=== PATIENT | female | born 1945 | race Caucasian/White ===

== ENCOUNTER → 2018-05-23 09:17 | Outpatient (CLI) | payer MEDICARE, BC, SELFPAY ==
[2018-05-23 09:26] VITALS: BP 149/69; PULSE 71; RESP 16; TEMP 36.5; O2SAT 97; BMI 28.0
[2018-05-23] MEDS: DENOSUMAB 60 MG/ML ML SQ (09:40)
== END ==
PROVIDERS: Family Provider Internal Medicine; PCP Internal Medicine; Visit Provider Internal Medicine
DX: M81.0 Age-related osteoporosis without current pathological fracture (principal)
CPT/HCPCS: 96372; J0897

== ENCOUNTER → 2018-10-30 08:28 | Outpatient (CLI) | payer MEDICARE, BC, SELFPAY ==
--- NOTE | 2018-10-30 08:35 | BI_ITS ---
MAMMOGRAPHY - BILATERAL SCREENING REASON FOR EXAM: Female, 73 years old. Routine annual screening examination. PERTINENT HISTORY: Mother with breast cancer. TECHNIQUE: Digital bilateral breast sarai (3D mammographic acquisition) in the CC and MLO projections. 2-D mediolateral oblique (MLO) and craniocaudad (CC) views of both breasts were obtained. CAD: Full Field Digital Mammography with Computer Added Detection was performed. COMPARISON: Comparison is made with prior study dated October 02, 2017 and August 28, 2016. FINDINGS: Breast Composition: The breasts are heterogeneously dense, which may obscure small masses. There are no dominant masses or suspicious calcifications. Stable small bilateral axillary lymph nodes. No other significant abnormalities are identified. There has been no significant change since the prior study. BI/SCREENING MAMM (CAD), BILAT IMPRESSION: Stable bilateral screening mammogram. Yearly follow-up mammogram recommended. (A) ASSESSMENT CATEGORY: BIRADS Category 2: Benign. A letter regarding these results will be sent to the patient by the facility within 30 days. Approximately 10% of breast cancers are not detected by mammography. A normal mammogram should not delay biopsy of a clinically suspicious abnormality. [id number] Electronically Signed: Jaun Montero MD at 10:32 EST Tel [phone], Service support ,
--- NOTE | 2018-10-30 08:42 | BD_ITS ---
STUDY: DUAL ENERGY X-RAY ABSORPTIOMETRY / DXA REASON FOR EXAM: Female, 73 years old. The patient is postmenopausal. Loss of height. TECHNIQUE: Bone Mineral Density (BMD) measurements of lumbar spine and bilateral hips were obtained. COMPARISON: Comparison is made with prior study dated October 16, 2016. FINDINGS: Lumbar Spine (L1-L4): g/cm2 (1.357) / T-score (1.5) / Z-score (3.2) Findings are suggestive of normal bone density with a low fracture risk. Left Femur Total: g/cm2 (0.790) / T-score (-1.7) / Z-score (0.0) Left Femoral Neck: g/cm2 (0.770) / T-score (-1.9) / Z-score (0.0) Right Femur Total: g/cm2 (0.823) / T-score (-1.5) / Z-score (0.3) Right Femoral Neck: g/cm2 (0.803) / T-score (-1.7) / Z-score (0.2) The T-Scores on the most recent prior examination were: Lumbar Spine (L1-L4): There has been improvement of bone density since the previous examination. Left Femur Total: which represents an improvement of 2.1%. Right Femur Total: which represents a worsening of 0.6%. BD/Dexa Bone Density Study IMPRESSION: The patient is considered osteopenic as outlined below according to World Jean Organization (WHO) criteria with a moderate fracture risk. There has been improvement of bone density since the previous examination. Reference Information: The T-score is the number of standard deviations above or below the standard which is normal for young adults at their peak bone mineral density. The World Health Organization (WHO) interprets the T-scores as follows: Above -1 Normal bone density Between -1 and -2.5 Osteopenia Equal to / or below -2.5 Osteoporosis As a practical clinical guideline, osteopenia may be graded as follows: Mild -1 through -1.5 Moderate -1.6 through -2.0 Severe -2.1 through -2.4 The Z-score is the number of standard deviations above or below age-matched controls. A Z-score of less than -1.5 would be considered abnormal. References: 1. NIH Osteoporosis and Related Bone Diseases http://www.osteo.org 2. International Society for Clinical Densitometry http://www.iscd.org 3. National Osteoporosis Foundation http://www.nof.org Electronically Signed: Jaun Montero MD at 8:47 EST Tel [phone], Service support ,
== END ==
PROVIDERS: Family Provider Internal Medicine; PCP Internal Medicine; Visit Provider Internal Medicine
DX: Z12.31 Encounter for screening mammogram for malignant neoplasm of breast (principal); M81.0 Age-related osteoporosis without current pathological fracture
CPT/HCPCS: 77063; 77067; 77080

== ENCOUNTER → 2018-11-21 09:23 | Outpatient (CLI) | payer MEDICARE, BC, SELFPAY ==
[2018-05-23 09:26] VITALS: BMI 28.0
[2018-11-21 09:44] VITALS: BP 155/91; PULSE 75; RESP 16; TEMP 36.3; O2SAT 97; BMI 28.5
[2018-11-21] MEDS: DENOSUMAB 60 MG/ML ML SQ (09:52)
== END ==
PROVIDERS: Family Provider Internal Medicine; PCP Internal Medicine; Visit Provider Internal Medicine
DX: M81.0 Age-related osteoporosis without current pathological fracture (principal)
CPT/HCPCS: 96372; J0897

== ENCOUNTER → 2019-03-19 14:41 | Outpatient (CLI) | payer SELFPAY ==
[2018-11-21 09:44] VITALS: BMI 28.5
--- NOTE | 2019-03-19 14:47 | CT_ITS ---
STUDY: CT CHEST WITHOUT CONTRAST REASON FOR EXAM: Female, 73 years old. Hyperlipidemia, calcium scoring, Over read. RADIATION DOSAGE (If Supplied By Facility): CTDIvol = ( 12.19 ) mGy, DLP = ( 170.66 ) mGycm TECHNIQUE: Transaxial imaging was performed without the administration of intravenous contrast material. Individualized dose optimization techniques were used for this CT. COMPARISON: CT chest 12/28/2015, CT abdomen and pelvis 12/31/2015. FINDINGS: Benign hepatic cysts, stable pattern, unchanged from prior imaging of 2016. Body wall soft tissues normal. Mild thoracic spondylosis. Minimal sliding hiatal hernia. Normal esophagus. No mediastinal mass or lymphadenopathy. Evaluated portions of the lungs exhibit no acute process. Visualized airways are normal. Nonaneurysmal ectasia of the ascending aorta and proximal arch 3.5 cm. on prior imaging of 2015 the greatest dimension in the same location was 3.2 cm. Nondilated central pulmonary arteries. Mild cardiomegaly, no pericardial effusion. The right and left coronary arteries each emerge from the proper coronary sinus with right coronary dominance to the PDA. Extensive three-vessel coronary calcifications. Mild mitral valve annulus calcifications and mild aortic valve annulus calcifications. CT/Limited Chest CT w/CCTA IMPRESSION: Chronic findings as above. No acute thoracic abnormality is evident. Prominent three-vessel coronary calcifications. The coronary calcium score is reported under separate cover with cardiology. Please see that report. Electronically Signed: Osmani Morgan MD at 10:01 EDT Tel , Service support ,
--- NOTE | 2019-03-19 14:47 | CT_ITS ---
STUDY: CT CHEST WITHOUT CONTRAST REASON FOR EXAM: Female, 73 years old. Hyperlipidemia, calcium scoring, Over read. RADIATION DOSAGE (If Supplied By Facility): CTDIvol = ( 12.19 ) mGy, DLP = ( 170.66 ) mGycm TECHNIQUE: Transaxial imaging was performed without the administration of intravenous contrast material. Individualized dose optimization techniques were used for this CT. COMPARISON: CT chest 12/28/2015, CT abdomen and pelvis 12/31/2015. FINDINGS: Benign hepatic cysts, stable pattern, unchanged from prior imaging of 2016. Body wall soft tissues normal. Mild thoracic spondylosis. Minimal sliding hiatal hernia. Normal esophagus. No mediastinal mass or lymphadenopathy. Evaluated portions of the lungs exhibit no acute process. Visualized airways are normal. Nonaneurysmal ectasia of the ascending aorta and proximal arch 3.5 cm. on prior imaging of 2015 the greatest dimension in the same location was 3.2 cm. Nondilated central pulmonary arteries. Mild cardiomegaly, no pericardial effusion. The right and left coronary arteries each emerge from the proper coronary sinus with right coronary dominance to the PDA. Extensive three-vessel coronary calcifications. Mild mitral valve annulus calcifications and mild aortic valve annulus calcifications. CT/CCTA Calcium Scoring IMPRESSION: Chronic findings as above. No acute thoracic abnormality is evident. Prominent three-vessel coronary calcifications. The coronary calcium score is reported under separate cover with cardiology. Please see that report. Electronically Signed: Osmani Morgan MD at 10:01 EDT Tel , Service support ,
[2019-03-19 14:53] VITALS: BP 148/82; PULSE 60; RESP 14; O2SAT 100; BMI 28.7
--- NOTE | 2019-03-19 20:52 | CA.SCORE ---
Calcium Scoring Date of Study:: 03/19/19 Coronary Calcium Scoring: High-resolution Computed Tomographic imaging of the chest was performed on 03-19-19, with particular attention paid to the coronary arteries. Images from the examination were analyzed for the presence and extent of coronary artery calcification , using coronary calcium quantification software. The patient tolerated the procedure well and there were no complications. The results of the coronary calcification analysis are provided below. - Findings Left Main (LM): 629 Left Anterior Descending (LAD): 0 Left Circumflex (LCX): 146 Right Coronary Artery (RCA): 1,117 Total Agatston Score: 1,892 Percentile Rankin - Conclusion Calcium Scoring Interpretation: Calcium Score Interpretation 0 No identifiable atherosclerotic plaque. Very low cardiovascular disease risk. <5% chance of presence coronary artery disease A Negative Examination 1-10 Minimal Plaque burden. Significant coronary artery disease very unlikely. 11-100 Mild plaque burden. Likely mild or minimal coronary atherosclerosis. 101-400 Moderate plaque burden Moderate non-obstructive coronary artery disease highly likely. Over 400 Extensive plaque burden. High likelihood of at least one significant coronary stenosis (>50% diameter) Calcium Score: >400 High likelihood of at least one significant coronary stenosis - Continue cardiovascular risk factor evaluation and therapy as deemed appropriate.
== END ==
PROVIDERS: Family Provider Internal Medicine; PCP Internal Medicine; Referring Provider Internal Medicine; Visit Provider Internal Medicine
DX: E78.5 Hyperlipidemia, unspecified (principal)
CPT/HCPCS: 75571; 76380

== ENCOUNTER → 2019-04-30 15:36 | Outpatient (CLI) | payer MEDICARE, BC, SELFPAY ==
[2019-04-30 14:24] VITALS: BMI 29.4
[2019-04-30 16:45] LABS: Absolute Lymphocyte Count 2.27 X10^3/ul (0.83-4.51); Absolute Neutrophil Count 4.5 X10^3/uL (2.0-7.7); Basophil# 0.04 X10^3/uL; Basophil% 0.5 % (0-1); Eosinophil# 0.09 X10^3/uL; Eosinophils% 1.2 % (0-5); Lymphocyte # 2.27 X10^3/ul (4.0); Lymphocyte % 30.7 % (19-41); Mean Corp Hgb Conc 33.3 g/gl (32-36); Mean Corpuscular Volume 92.9 fL (81-99); Monocyte# 0.52 X10^3/uL; Neutrophil # 4.46 X10^3/uL (2.7-7.7); Neutrophil % 60.5 % (47-70); Platelet Count 194 K/mm3 (150-450); RBC Distribution Width CV 12.9 % (11.6-14.6); White Blood Count 7.4 K/mm3 (4.4-11.0)
[2019-04-30 16:55] LABS: POSITIVE COUNT NO; POSITIVE DIFFERENTIAL NO; POSITIVE MORPHOLOGY NO
[2019-04-30 17:07] LABS: Anion Gap 5 (5-15); BUN 13 mg/dL (7-18); BUN/Creat Ratio 22.8 RATIO (10-20); Calcium,Total 9.4 mg/dL (8.5-10.1); Chloride 109 mmol/L (98-107); Creatinine, Serum 0.57 mg/dL (0.55-1.02); EST Glomerular Filtration Rate 109 mL/min (>60); Est Glom Filt Rate - Afr Amer 132 mL/min (>60); Glucose 100 mg/dL (74-106); Potassium 4.7 mmol/L (3.5-5.1); Sodium Level 142 mmol/L (136-145); Thyroid Stim Hormone (TSH) 1.87 uIU/mL (0.358-3.74)
== END ==
PROVIDERS: Family Provider Internal Medicine; PCP Internal Medicine; Referring Provider Internal Medicine Cardiovascular Disease; Visit Provider Internal Medicine Cardiovascular Disease
DX: R53.83 Other fatigue (principal); R93.1 Abnormal findings on diagnostic imaging of heart and coronary circulation; I49.3 Ventricular premature depolarization; E78.00 Pure hypercholesterolemia, unspecified; I10 Essential (primary) hypertension
CPT/HCPCS: 36415; 80048; 84436; 84443; 85025

== ENCOUNTER → 2019-05-19 06:07 | Outpatient (CLI) | payer MEDICARE, BC, SELFPAY ==
[2019-04-30 14:24] VITALS: BMI 29.4
--- NOTE | 2019-05-19 06:08 | ECHOD_ITS ---
Reason For Study: DYSPNEA/SOB Procedure This was a 2D Doppler, Color Flow transthoracic echocardiogram. The exam was of adequate technical quality. Exam performed in department. Left Ventricle Normal LV size. Segmental dysfunction with preserved ejection fraction (see wall motion). The estimated ejection fraction is 55 %. There is evidence of diastolic dysfunction. No regional wall motion abnormalities noted. Right Ventricle Normal RV size. Normal systolic function. Atria The left atrium is mildly enlarged. Normal right atrium. No doppler evidence for ASD. Mitral Valve There is mild mitral annular calcification. Extension of the mitral annular calcification onto the posterior mitral valve leaflet. Mild (1+) mitral valve insufficiency. Tricuspid Valve Normal tricuspid valve. Moderate (2+) tricuspid valve insufficiency. Right ventricular systolic pressure estimated to be 44 mmHg. Aortic Valve Trisinus/trileaflet aortic valve. Normal aortic valve. Pulmonic Valve The pulmonic valve is not well visualized. Trivial pulmonic valve insufficiency. Great Vessels Normal sized aortic root. Pericardium/Pleural No pericardial effusion. MMode/2D Measurements & Calculations LVIDd: 4.4 cm IVSd: 0.71 cm Ao root diam: 3.1 cm LVIDs: 3.2 cm LVPWd: 0.97 cm RVDd: 3.4 cm FS: 27.0 % LAV(MOD-bp): 61.5 ml LVAd ap4: 25.9 cm2 SV(MOD-sp4): 41.4 ml LAV(MOD-bp) Indexed: 35.4 ml/m2 EDV(MOD-sp4): 79.5 ml LAV(MOD-sp2): 62.2 ml EDV(sp4-el): 82.3 ml LAV(MOD-sp4): 55.9 ml LVAs ap4: 17.1 cm2 ESV(MOD-sp4): 38.1 ml ESV(sp4-el): 38.9 ml EF(MOD-sp4): 52.1 % EF(sp4-el): 52.7 % SV(sp4-el): 43.4 ml LA A4 area: 19.3 cm2 LA dimension(2D): 3.9 cm RA A4 area: 14.0 cm2 Time Measurements MV dec time: 0.38 sec Doppler Measurements & Calculations MV E max panda: 65.3 cm/sec Lat Peak E' Panda: 5.4 cm/sec Med Peak E' Panda: 4.4 cm/sec MV A max panda: 109.6 cm/sec E/E' lat: 12.1 E/E' med: 14.8 MV E/A: 0.60 Ao V2 max: 124.6 cm/sec LV V1 max: 81.6 cm/sec PA V2 max: 83.2 cm/sec Ao max P.2 mmHg LV V1 max P.7 mmHg TR max panda: 321.6 cm/sec TR max P.4 mmHg Interpretation Summary Segmental dysfunction with preserved ejection fraction (see wall motion). The estimated ejection fraction is 55 %. The left atrium is mildly enlarged. There is mild mitral annular calcification. Extension of the mitral annular calcification onto the posterior mitral valve leaflet. Mild (1+) mitral valve insufficiency. Moderate (2+) tricuspid valve insufficiency. Trivial pulmonic valve insufficiency. Right ventricular systolic pressure estimated to be 44 mmHg. There is evidence of diastolic dysfunction. Ordering Physician: Aguila Mustafa Referring Physician: GISELE BOWMAN Performed By: Vicky Perez RDCS
--- NOTE | 2019-05-19 10:55 | STRESSREP_ITS ---
Stress Test Report Date: 05-19-19 Procedure: Exercise tolerance test/imaging study Indications: Shortness of breath/dyspnea on exertion; coronary artery calcif ication Consent: Per the patient Procedure: The patient exercised on a Jacoby protocol for 4 minutes completing Stage I and 1 minute of Stage II achieving a peak heart rate of 157 bpm (109 % predicted maximal heart rate) with a peak blood pressure 162/82 mmHg and a peak MET capacity of 5 METs. The baseline ECG demonstrated normal sinus rhythm. The peak exercise ECG demonstrated [id number] nonspecific ST segment variability/downsloping ST segment depression in leads II, III, aVF, and V5 through V6 with gradual resolution towards baseline in recovery. There were occasional PACs and repetitive PACs during exercise and recovery; intermittent episodes compatible with a PSVT during recovery; occasional PVCs during exercise and recovery. The functional capacity was considered average. There was no complaint of chest discomfort during exercise or recovery. The examination was discontinued secondary to dyspnea. Impression: 1. Technically adequate (percent predicted maximal heart rate greater than 85%) exercise tolerance test 2. Peak exercise ECG demonstrated [id number] nonspecific ST segment variability/downsloping ST segment depression in leads II, III, aVF, and V5 through V6 with gradual resolution towards baseline in recovery 3. There were occasional PACs and repetitive PACs during exercise and recovery; intermittent episodes compatible with a PSVT during recovery; occasional PVCs during exercise and recovery 4. Nuclear images pending Myocardial perfusion imaging study: Technique: The patient was injected with 10.9 mCi of technetium 99m Cardiolite and subse quently rest SPECT Cardiolite nuclear imaging was obtained in the horizontal long, vertical long, and short axis views. he patient exercised on a Jacoby protocol for 4 minutes completing Stage I and 1 minute of Stage II achieving a peak heart rate of 157 bpm (109 % predicted maximal heart rate) with a peak blood pressure 162/82 mmHg and a peak MET capacity of 5 METs. The patient was injected with 33.1 mCi of technetium 99m Cardiolite and subsequently stress SPECT Cardiolite nuclear imaging was obtained in the horizontal long, vertical long, and short axis views. A gated Cardiolite study at peak stress was obtained. Interpretation: Rest and stress SPECT Cardiolite nuclear imaging status post realignment, normalization, and attenuation correction, demonstrates at rest relative uniform tracer uptake. Status post stress there is notation of diminished tracer uptake in the apical segments as well as the mid to distal inferior segments. There is end systolic thickening and brightening. The gated Cardiolite study demonstrates myocardial thickening and inward wall motion. The reported LVEF is 62 %. Impression: 1. Rest and stress SPECT Cardiolite nuclear imaging demonstrate demonstrate myocardial perfusion changes concerning for areas of stress-induced myocardial ischemia involving portions of the apical segments as well as the mid to distal inferior segments. 2. The gated Cardiolite study reports an LVEF of 62 %. This note was generated with [employer] software. It may contain incorrect words, spelling, and punctuation that were not noted in checking the note before signing.
== END ==
PROVIDERS: Family Provider Internal Medicine; PCP Internal Medicine; Referring Provider Internal Medicine Cardiovascular Disease; Visit Provider Internal Medicine Cardiovascular Disease
DX: R06.02 Shortness of breath (principal); I49.3 Ventricular premature depolarization; I10 Essential (primary) hypertension; E78.00 Pure hypercholesterolemia, unspecified; R53.83 Other fatigue; R93.1 Abnormal findings on diagnostic imaging of heart and coronary circulation
CPT/HCPCS: 78452; 93017; 93306; A9500; A4216

== ENCOUNTER → 2019-05-22 10:20 | Outpatient (CLI) | payer MEDICARE, BC, SELFPAY ==
[2018-11-21 09:44] VITALS: BMI 28.5
[2019-04-30 14:24] VITALS: BMI 29.4
[2019-05-22 10:35] VITALS: BP 174/70; PULSE 62; RESP 16; TEMP 36.6; O2SAT 98; BMI 29.2
[2019-05-22] MEDS: DENOSUMAB 60 MG/ML ML SQ (10:37)
== END ==
PROVIDERS: Family Provider Internal Medicine; PCP Internal Medicine; Referring Provider Internal Medicine; Visit Provider Internal Medicine
DX: M81.0 Age-related osteoporosis without current pathological fracture (principal)
CPT/HCPCS: 96372; J0897

== ENCOUNTER → 2019-05-25 14:42 | Outpatient (CLI) | payer MEDICARE, BC, SELFPAY ==
[2019-05-25 14:02] VITALS: BMI 29.2
[2019-05-25 17:02] LABS: Hematocrit 38.4 % (37-47); Hemoglobin 12.9 g/dl (12.0-15.0); Mean Corp Hgb Conc 33.6 g/gl (32-36); Mean Corpuscular Hgb 31.3 pg (27.0-32.0); Mean Corpuscular Volume 93.2 fL (81-99); Mean Platelet Vol. 10.1 fl (6.2-12.0); Platelet Count 203 K/mm3 (150-450); RBC Distribution Width CV 13.1 % (11.6-14.6); RBC Distribution Width SD 44.6 fl (35.1-43.9); Red Blood Count 4.12 M/mm3 (4.2-5.4); Scan Indicated on CBC? Y/N NO; White Blood Count 5.6 K/mm3 (4.4-11.0)
[2019-05-25 17:21] LABS: Prothrombin Time (Protime)PT. 13.3 SECONDS (11.7-14.9)
[2019-05-25 17:22] LABS: Partial Thromboplast Time 24.2 Seconds (24.1-36.2)
[2019-05-25 17:25] LABS: Anion Gap 10 (5-15); BUN 13 mg/dL (7-18); BUN/Creat Ratio 20.8 RATIO (10-20); Calcium,Total 9.4 mg/dL (8.5-10.1); Chloride 108 mmol/L (98-107); Creatinine, Serum 0.62 mg/dL (0.55-1.02); EST Glomerular Filtration Rate 99 mL/min (>60); Est Glom Filt Rate - Afr Amer 119 mL/min (>60); Glucose 90 mg/dL (74-106); Potassium 3.9 mmol/L (3.5-5.1); Sodium Level 144 mmol/L (136-145)
== END ==
PROVIDERS: Family Provider Internal Medicine; PCP Internal Medicine; Referring Provider Internal Medicine Cardiovascular Disease; Visit Provider Internal Medicine Cardiovascular Disease
DX: I10 Essential (primary) hypertension (principal); R53.83 Other fatigue; R94.39 Abnormal result of other cardiovascular function study; R93.1 Abnormal findings on diagnostic imaging of heart and coronary circulation
CPT/HCPCS: 36415; 80048; 85027; 85610; 85730

== ENCOUNTER 2019-06-02 07:51 | Day surgery (SDC) | payer MEDICARE, BC, SELFPAY ==
[2019-05-22 10:35] VITALS: BMI 29.2
--- NOTE | 2019-05-25 02:39 | HP_ITS ---
HPI HPI History of Present Illness Surgical H&P: Yes Details: This is a 74-year-old white female who [facility] upon concerns of an abnormal coronary calcium score. She states the best of her knowledge she has no definitive cardiovascular disease. Approximately 3 years ago when she was undergoing evaluation care for her CLL and concerns of pancytopenia she had chest discomfort. She was evaluated with an exercise tolerance test/imaging study. She exercised on a Jacoby protocol for 4 minutes and 30 seconds obtaining 102% predicted maximal heart rate. She had ECG changes which were considered not diagnostic for myocardial ischemia. Her myocardial perfusion images were considered negative for evidence of stress-induced myocardial ischemia. Approximately 2 years ago she underwent evaluation with a Holter monitor. According to reports she was found to have sinus rhythm with both PACs and PVCs. She had no wide-complex runs. She states she is been doing well otherwise from a cardiac standpoint. She denies any classic symptoms of angina pectoris. There is been no overt episodes of CHF or pulmonary edema. She has had no near syncope or syncope. She states she is up and ambulating during the day. She may feel somewhat more tired and fatigued over time but states that she knows she is getting older, has her diagnosis of CLL, and does not necessarily believe that she has had any other explanation for this. She states this has not been a dramatic change for her. In the office at her initial visit she had an ECG. She was in sinus bradycardia at a rate of 56 bpm. She had no acute ECG changes. She did have a coronary calcium score recently. Per the report her coronary calcium score was listed at 1893. This does place her in a higher risk category for the possibility of plaque burden. She has subsequently undergone further evaluation with an exercise tolerance test/imaging study. The results are as noted below. Intake Vital Signs 05/25/19 Body Mass Index (BMI) 29.2 05/25/19 Height 5 ft 2 in 05/25/19 Weight: 160 lb 05/25/19 Body Mass Index (BMI) 29.2 05/25/19 Blood Pressure 176/90 H 05/25/19 Blood Pressure Location Lt brachial 05/25/19 Blood Pressure Position Sitting 05/25/19 Respiratory Rate 16 05/25/19 Pulse Rate 72 05/25/19 Pulse Source Auscultation Intake Visit Reasons: Update H & P Operating Room Tech Required: No Accompanied by: Friend Allergies codeine Allergy (Verified 05/25/19 13:54) Rash meperidine HCl [From Demerol] Allergy (Verified 05/25/19 13:54) Rash morphine Allergy (Verified 05/25/19 13:54) Rash Penicillins Allergy (Verified 05/25/19 13:54) Rash Medications Aspirin [Aspirin, Baby] 81 mg PO DAILY@0800 05/23/18 [History Confirmed 05/25/19] carvedilol 25 mg tablet 25 mg PO BID 04/28/19 [History Confirmed 05/25/19] cholecalciferol (vitamin D3) 1,000 unit tablet 1,000 unit PO DAILY 04/28/19 [History Confirmed 05/25/19] cholestyramine (with sugar) 4 gram oral powder 4 g PO BID g 04/28/19 [History Confirmed 05/25/19] losartan 100 mg tablet 100 mg PO DAILY 04/28/19 [History Confirmed 05/25/19] ranitidine 150 mg tablet 150 mg PO BID 04/28/19 [History Confirmed 05/25/19] calcium carb,cit ER 600 mg calcium-vit D3 500 unit tablet,ext.release 2 tab PO DAILY tab 04/30/19 [History Confirmed 05/25/19] denosumab 60 mg/mL subcutaneous syringe 60 mg SC [id number] ml 04/30/19 [History Confirmed 05/25/19] amlodipine 2.5 mg tablet 2.5 mg PO DAILY #30 tab 05/25/19 [Rx Confirmed 05/25/19] clopidogrel 75 mg tablet 75 mg PO DAILY #30 tab 05/25/19 [Rx Confirmed 05/25/19] [facility] Medical History Abnormal cardiac CT angiography (Acute) Essential tremor (Chronic) Premature ventricular contraction (Chronic) GERD (gastroesophageal reflux disease) (Chronic) Pure hypercholesterolemia (Chronic) Essential hypertension (Chronic) CLL (chronic lymphocytic leukemia) (Chronic) Surgical History Cataract extraction status, left eye (Resolved) History of foot surgery (Resolved) History of tonsillectomy (Resolved) History of total hysterectomy (Resolved) Family History Mother Heart disease Hypertension Father CAD (coronary artery disease) Myocardial infarction, Onset Age: 46 Brother Heart disease Hypertension Cancer prostate Brother Heart disease Brother Myocardial infarction, Onset Age: 70 Social History (Updated 05/25/19 @ 14:39 by Aguila Mustafa MD) Smoking Status: Never smoker alcohol intake: current details: occasional substance use type: does not use caffeine: Yes Type: coffee Number of servings: 2, tea Number of servings: 2 ROS Const Const: Negative for fatigue, weakness, frequent falls, excessive sweating, weight gain or weight loss Eyes Eyes: Negative for transient loss of vision, blurry vision or change in vision ENT ENT: Negative for dizziness or balance problems Cardio Chest Pain: No Palpitations: Yes (occasional) feels like its: other (flutter) Edema: None Muscle aches with walking: None Resp Respiratory: Positive for SOB with activity (slight); negative for SOB at rest GI GI: Negative vomiting or vomiting blood/hematemesis : Negative for hematuria Musc Musc: Negative for muscle aches/ myalgia, muscle weakness, joint pain or balance problems Skin Skin: Negative non-healing lesions or rash Neuro Neuro: Positive for lightheadedness (occasional continues sitting to standing); negative for dizziness, orthostatic symptoms, frequent falls, weakness or blurry vision Roberto Carlos Hematologic/Lymphatic: Negative for easy bleeding Endo Endo: Negative for fatigue or excessive sweating Psych Psych: Negative for anxiety or depression Allergy Allergy/Immunology: Negative for hives, Negative for rash Cardiology Exam Const Appearance: cooperative, healthy appearing, comfortable, no acute distress, well developed and well groomed Nutritional Appearance: overweight Orientation: alert, awake and oriented x3 Head Head: normal to inspection, normocephalic and atraumatic Ears: hearing grossly normal bilaterally Nose: external nose normal Mouth: oral mucosae normal Eyes Eyelids: eyelids normal Conjunctivae: conjunctivae normal Pupils: PERRL EOM: EOM intact bilaterally Neck Neck: normal visual inspection and full ROM Carotids: normal carotid upstroke Chest Chest inspection: normal inspection of the chest, symmetric chest movement and normal respiratory effort Auscultation: Bilateral: Clear to Auscultation Cardio Palpation: normal PMI Rate: regular rate Rhythm: regular rhythm Heart sounds: S1 normal and S2 normal GI GI: normal to inspection, soft and bowel sounds present Neuro General: alert, awake, oriented x3 and moves all extremities Skin Skin: no rashes or lesions noted Extremities Pulses: Normal: Right Dorsalis Pedis Pulse, Left Dorsalis Pedis Pulse, Right Posterior Tibial Pulse, Left Posterior Tibial Pulse, Right Radial Pulse, Left Radial Pulse Lower Extremity Edema: None: Bilateral Psych Psychological: normal affect Assessment & Plan 1. Abnormal cardiac CT angiography R93.1 Plan She does have an abnormal coronary calcium score as previously described. This is led to further evaluation with an exercise tolerance test. This was deemed to be abnormal. Thus she is being considered for further evaluation with diagnostic cardiac catheterization. The procedure and risks were discussed with her and she was agreeable to this approach. 2. Abnormal stress test R94.39 Plan Again it is unclear whether her fatigue is related to underlying CAD. She did have an abnormal coronary calcium score as previously described. Her subsequent exercise tolerance test has been considered abnormal. Thus she is being recommended for further evaluation with a diagnostic cardiac catheterization. The procedure and risks were discussed with her. She was agreeable to this approach. She did not want to watch the pre-cardiac catheterization videotape. She will be placed on additional medical therapy with clopidogrel/Plavix at 75 mg a day. Hopefully she will tolerate this without any adverse events. 3. Premature ventricular beat I49.3 Plan She is not complaining of any underlying ectopy, dysrhythmias, near syncope or syncope at this time. She will continue evaluation care as noted above. 4. Fatigue, unspecified type R53.83 Plan Again her concern was fatigue. Is unclear whether this is going to turn laster to be related to her concerns of cardiovascular disease versus noncardiac disease. She will continue her cardiac evaluation as previously described. 5. Pure hypercholesterolemia E78.00 Plan She will continue risk factor evaluation care as deemed appropriate. 6. Essential hypertension I10 Plan She will be placed on additional antihypertensive therapy with amlodipine 2.5 mg p.o. daily. She states when she was on HCTZ she became markedly hypotensive and could not tolerate it. 7. CLL (chronic lymphocytic leukemia) C91.90 Pancytopenia, stable. Plan She does have a history of CLL. Her most recent laboratory studies from April of this year demonstrated her CBC it appears stable without any acute changes. 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 Hopefully with the stability of her CBC and with no obvious hemorrhagic or thromboembolic issues she will be able to tolerate her aspirin and her clopidogrel/Plavix therapy. If she does not require PCI then she will not necessarily remain on clopidogrel/Plavix therapy. Plan Detail Other Medications New: clopidogrel 75 mg PO DAILY 30 tabs 3RF amlodipine 2.5 mg PO DAILY 30 tabs 3RF Refilled: clopidogrel 75 mg PO DAILY 30 tabs 3RF Additional Comments Thank you for allowing me to participate in the care of your patient. Please don't hesitate to call if any issues arise. This note was generated using a voice recognition system and there may be incorrect words, spelling or punctuation that were not noted when reviewing the office note prior to saving. Follow Up 3 Months (PFM) Coding Level of Care Code Off vis,est,level [address] angiography R93.1 Abnormal stress test R94.39 Premature ventricular beat I49.3 Fatigue, unspecified type R53.83 ??Fatigue type: unspecified Pure hypercholesterolemia E78.00 Essential hypertension I10 CLL (chronic lymphocytic leukemia) C91.90 Coding Level of Care Code Off vis,est,level [address] angiography R93.1 Abnormal stress test R94.39 Premature ventricular beat I49.3 Fatigue, unspecified type R53.83 ??Fatigue type: unspecified Pure hypercholesterolemia E78.00 Essential hypertension I10 CLL (chronic lymphocytic leukemia) C91.90 Supplemental Info Supplemental Information Stress Test Report Date: 05-19-19 Procedure: Exercise tolerance test/imaging study Indications: Shortness of breath/dyspnea on exertion; coronary artery calcification Consent: Per the patient Procedure: The patient exercised on a Jacoby protocol for 4 minutes completing Stage I and 1 minute of Stage II achieving a peak heart rate of 157 bpm (109 % predicted maximal heart rate) with a peak blood pressure 162/82 mmHg and a peak MET capacity of 5 METs. The baseline ECG demonstrated normal sinus rhythm. The peak exercise ECG demonstrated [id number] nonspecific ST segment variability/downsloping ST segment depression in leads II, III, aVF, and V5 through V6 with gradual resolution towards baseline in recovery. There were occasional PACs and repetitive PACs during exercise and recovery; intermittent episodes compatible with a PSVT during recovery; occasional PVCs during exercise and recovery. The functional capacity was considered average. There was no complaint of chest discomfort during exercise or recovery. The examination was discontinued secondary to dyspnea. Impression: 1. Technically adequate (percent predicted maximal heart rate greater than 85%) exercise tolerance test 2. Peak exercise ECG demonstrated [id number] nonspecific ST segment variability/downsloping ST segment depression in leads II, III, aVF, and V5 through V6 with gradual resolution towards baseline in recovery 3. There were occasional PACs and repetitive PACs during exercise and recovery; intermittent episodes compatible with a PSVT during recovery; occasional PVCs during exercise and recovery 4. Nuclear images pending Myocardial perfusion imaging study: Technique: The patient was injected with 10.9 mCi of technetium 99m Cardiolite and subsequently rest SPECT Cardiolite nuclear imaging was obtained in the horizontal long, vertical long, and short axis views. he patient exercised on a Jacoby protocol for 4 minutes completing Stage I and 1 minute of Stage II achieving a peak heart rate of 157 bpm (109 % predicted maximal heart rate) with a peak blood pressure 162/82 mmHg and a peak MET capacity of 5 METs. The patient was injected with 33.1 mCi of technetium 99m Cardiolite and subsequently stress SPECT Cardiolite nuclear imaging was obtained in the horizontal long, vertical long, and short axis views. A gated Cardiolite study at peak stress was obtained. Interpretation: Rest and stress SPECT Cardiolite nuclear imaging status post realignment, normalization, and attenuation correction, demonstrates at rest relative uniform tracer uptake. Status post stress there is notation of diminished tracer uptake in the apical segments as well as the mid to distal inferior segments. There is end systolic thickening and brightening. The gated Cardiolite study demonstrates myocardial thickening and inward wall motion. The reported LVEF is 62 %. Impression: 1. Rest and stress SPECT Cardiolite nuclear imaging demonstrate demonstrate myocardial perfusion changes concerning for areas of stress-induced myocardial ischemia involving portions of the apical segments as well as the mid to distal inferior segments. 2. The gated Cardiolite study reports an LVEF of 62 %. Diagnostics Electrocardiogram 04/30/19 Echocardiogram 05/19/19 Stress Test Nuclear Medicine 05/19/19 Stress Test 05/19/19 Chest X-Ray 12/26/[address] 03/19/19 05/25/19 9416 <Electronically signed by Aguila koroma MD> Date _ Aguila Mustafa MD I have re-examined the patient. There are no clinical changes since date of exam.
[2019-05-25 14:02] VITALS: BMI 29.2
[2019-06-01 08:55] VITALS: BMI 29.2
--- NOTE | 2019-06-01 09:30 | RAD_ITS ---
STUDY: X-RAY CHEST REASON FOR EXAM: Female, 74 years old. Short of breath. Chest pain. TECHNIQUE: Frontal and lateral views of the chest. COMPARISON: 12/26/2015 FINDINGS: The lungs are clear and expanded. There is no demonstrated pleural abnormality. Normal size heart. Normal mediastinum and doug. Normal visualized pulmonary arteries. There is atherosclerotic calcification of the aortic arch with tortuosity. There are diffuse degenerative changes of the visualized thoracic spine. Normal visualized ribs, clavicles, and shoulders. There is no demonstrated abnormality of the visualized soft tissue structures of the upper abdomen. RAD/Chest PA and Lateral IMPRESSION: No acute chest disease. Electronically Signed: Luigi Mauricio MD at 17:38 EDT , Service support ,
--- NOTE | 2019-06-02 11:32 | CL.D_ITS ---
Patient Name: ISAMAR ORDOÑEZ Study Date: 06/02/2019 Performing: Aguila Mustafa MD Ht: 61.81 inches 157 cm : 1945 Wt: 160.94 lbs 73 kg Age: 74 Gender: female BSA: 1.74 PROCEDURE(S) PERFORMED [id number]/LV CLINICAL PROFILE AND INDICATIONS Indications: Suspected CAD Heart Failure: None Stress/Imaging Stress Test w/SPECT MPI: Yes Result: PositiveStress Test with SPECT MPI: Positive Angina Classification Anginal Classification w/in 2 Weeks: CCS III CAD Presentations: Other: Fatigue / Shortness of Breath CONCLUSIONS Elevated Left Ventricular End Diastolic Pressure Normal LV size, wall motion,and systolic function LVEF: by LV gram 60 % [place] Multivessel CAD Aortic arch: calcified RECOMMENDATIONS Risk factor modification Medical therapy Surgery consult for coronary revascularization DESCRIPTION OF PROCEDURE The patient arrived to the procedure lab. The risks and benefits of the procedure as well as a full d escription of our services here and current unavailability of surgical backup were fully explained to the patient and/or their significant other prior to the catheterization. The Timeout was completed, verifying the correct patient and procedure. The patient's procedural site was prepped and draped in the usual fashion. Local anesthetic was given subcutaneously to right radial region with Lidocaine 2% . Using a modified Seldinger technique, arterial access was obtained via the right radial artery, a 6 Fr sheath was inserted. Right Coronary Artery selective angiography was then performed in multiple v iews using a 5 Fr. 4.0 [place] catheter. Left Coronary Artery selective angiography was performed in mu ltiple views using a 5 Fr. 4.0 [place] catheter. Left Ventriculography was performed in SHETH projection using a 5 Fr. [place] catheter. LV to AO pullback pressures were then recorded.The arterial sheath was pulled and a TR Band was applied for hemostasis 12cc air CORONARY ANGIOGRAPHY DOMINANCE: Right Dominant LEFT HEART ASSESSMENT Left Ventricular Ejection Fraction: by LV Gram 60 % Normal LV wall motion Elevated Left Ventricular End Diastolic Pressure LVEDP: 17 mmHg LEFT MAIN: Mild calcification, Proximal: 25 % Stenosis LEFT ANTERIOR DESCENDING ARTERY: PROX LAD: Moderate calcification, Mild luminal irregularities MID LAD: Eccentric: subtotal occlusion DIAGONAL 1: Proximal - Mild luminal irregularities DIAGONAL 2: Proximal - Diffuse: 85 % Stenosis CIRCUMFLEX ARTERY: Mild calcification PROX CIRC: Mild luminal irregularities MID CIRC: Diffuse: 85 % Stenosis OM 1: Mid - Mild luminal irregularities RIGHT CORONARY ARTERY: Moderate calcification MID RCA: Diffuse subtotal occlusions with the distal vessel filling late, Diffuse subtotal occlusions with the distal vessel filling late COLLATERAL FLOW: Collateral flow from Left to Right VALVE FINDINGS: Normal Aortic Valve function Normal Mitral Valve function AORTIC ROOT: Aortic arch: calcified COMPLICATIONS No Complications PROCEDURE MEDICATIONS Versed 1 mg IV Oxygen: 2 L/min via nasal cannula Heparin diluted in 23cc Heparinized saline. Patient given 10cc IA of this solution. 06/02/2019 10:22:3 9 Verapamil 2.5mg, Ntg 100mcgs, 2000 units of Heparin diluted in 23cc Heparinized saline. Patient give n 10cc IA of this solution. 06/02/2019 10:22:39 SUMMARY OF HEMODYNAMIC DATA Time AIR REST ECG 10:09:39 AO 179/73 (114) SA 10:35:25 LV 167/-9, 16 10:44:26 LV 167/-10, 17 10:44:33 LV 170/-6, 21 10:45:20 LV 168/-8, 20 10:45:27 LVp 170/-8, 24 10:45:31 AOp 162/62 (102) 10:45:37 Signed By Aguila Mustafa MD On 06/02/2019 11:31:38 Aguila Mustafa MD
== END 2019-06-02 15:35 | disposition home or self-care (01) ==
LOC: CLSP 07:52
PROVIDERS: Family Provider Internal Medicine; PCP Internal Medicine; Visit Provider Internal Medicine Cardiovascular Disease
DX: I70.0 Atherosclerosis of aorta (principal); I25.10 Atherosclerotic heart disease of native coronary artery without angina pectoris; I11.0 Hypertensive heart disease with heart failure; I50.30 Unspecified diastolic (congestive) heart failure; I49.3 Ventricular premature depolarization; R93.1 Abnormal findings on diagnostic imaging of heart and coronary circulation; R94.39 Abnormal result of other cardiovascular function study; R53.83 Other fatigue; E78.00 Pure hypercholesterolemia, unspecified; C91.10 Chronic lymphocytic leukemia of B-cell type not having achieved remission; D61.818 Other pancytopenia; Z79.82 Long term (current) use of aspirin; Z79.02 Long term (current) use of antithrombotics/antiplatelets; Z79.899 Other long term (current) drug therapy
CPT/HCPCS: 71046; 93458; 99152; 99153; J7040; C1769; C1894; Q9967

== ENCOUNTER → 2019-08-11 11:31 | Outpatient (CLI) | payer MEDICARE, BC, SELFPAY ==
[2019-08-07 06:40] VITALS: BMI 29.4
--- NOTE | 2019-08-11 12:01 | PCM.CR.ITP ---
General Information - General Information Admitting Diagnosis: CABG X3 Special Needs: NONE Oxygen: NONE - Education/Goals Barriers to Learning: None Individual Counseling: Initial Assessment: High Blood Pressure, Hypertension, Family History of Heart Disease (under 65 years) Cardiac Rehabilitation Goals: 1. Maintain the individual as the primary focus of care. 2. To improve the patient's quality of life. 3. Identification of cardiac risk factors and provide cardiac risk factor management. 4. Enhance the psychosocial status of the patient. 5. Reconditioning enough to allow the patient to resume customary activities. 6. Control symptoms of cardiac disease Scale for measuring improvement of personal goals: Enter appropriate number in Comments. 2 = Unchanged. 3 = Slightly Better. 4 = Moderate Improvement. 5 = Met my Goal Personal Goals: Initial Assessment: Improve energy level, Participate in home exercise program, Get back to work, or to resume activities faster, Improve knowledge of cardiac disease, Improve muscle strength and endurance, Improve diet and eating habits (eat healthier), Control risk factors (learn risk factor modification) Exercise - Initial Assessment - Visit Date of Eval: 08/11/19 - Stages of Change Stages of Change:: Action - Physician Prescribed Exercise Modalities: Treadmill, Biodyne, Airdyne, NuStep, SciFit Frequency (days/week): 3x/week for 12 weeks [36 sessions] Duration (Minutes):: 30 Intensity: 60-80% age predicted maximum heart rate reserve Target Heart Rate:: 94-122 - Hypertension Do any of the following apply?: Yes, Medication - LOPRESSOR Resting Blood Pressure:: 158/76 - Intervention Home Exercise/Activity Goal:: Sitting Time <3 hrs/day - Education Goals:: Warm-up, RPE KIMBERLY Scale, S/S, Safe Exercise, Self-Monitoring - Exercise Program Goals Exercise Program Goals: Aerobic Activity >30 min, B/P <130/80 Nutrition - Initial Assessment - Program Goals Nutrition Program Goals: LDL <70. Total Cholesterol <200. HDL >45. Triglycerides <150. HgbA1C <7%. BMI <25 - Visit Date of Assessment:: 08/11/19 - Stages of Change Stages of Change:: Action - CHOLESTEROL PROFILE NOT AVAILABLE AT THIS TIME. - Diabetes Diabetes:: No - Weight Management Height: 5 ft 2 in Weight:: 161 lb - Intervention Referral to dietitian:: No Referral to Diabetic Clinic:: No Will attend diet classes:: Yes - CR CLASSES - Education Gave educational materials for:: Healthy eating - INFORMED OF EDUCATION HAND-OUTS AVAILABLE ON [facility] WEBSITE Tobacco - Initial Assessment - Program Goals Tobacco Program Goals: Complete smoking cessation. Attend education classes. Improve Knowledge Test score - Stage of Change Stages of Change:: Action - Family Support Do you have family support?: Yes - A VERY CLOSE FRIEND - Tobacco Use Tobacco Use: Non-smoker - Intervention Smoking Cessation Referral:: No - Education Attended class for:: Treating Heart Disease, How The Heart Works, What it means to have Heart Disease, How Coronary Artery Disease is Diagnosed, Heart Procedures, What Heart Medications Do, Risk Factors & Modifications, Living an Active Life, Nutrition, Emotions & Heart Disease, Stress Management & Relaxation, Sleep Disorders & Heart Disease - INFORMED OF [facility] ON-LINE EDUCATION MATERIALS WELL A CR CLASSES OFFERED WHILE ATTENDING Psychosocial - Initial Assess - Target Goals Target Goals: Assess presence or absence of depression. Using a valid screening tool, maximizes coping skills. Positive support system - Stages of Change Stages of Change:: Action - Psychosocial Test Tool Used:: HANDS Depression Questionnaire - Intervention PS - Interventions: Yes Attend Stress Management Classes - CR CLASSES, Yes Uses Stress Management Skills - CR CLASSES, No Referral to Mental Health, No Referral to [facility] Case Management, No Referral to Physician - Education Gave educational materials for:: Coping techniques, Signs & symptoms of depression, Stress management, Relaxation techniques - Patient/Program Goal Preventative Medication(s):: Aspirin, Beta arya, Statin/lipid - Assistive Devices Assistive Devices:: None Fall Risk Assessed:: No Patient Health Questionnaire Initial Assessment 1. Little interest or pleasure in doing things: Not at all 2. Feeling down, depressed, or hopeless: Not at all 3. Trouble falling or staying asleep, or sleeping too much: Several days 4. Feeling tired or having little energy: Several days 5. Poor appetite or overeating: Several days 6. Feeling bad about yourself -- or that you are a failure or have let yourself or your family down: Not at all 7. Trouble concentrating on things, such as reading the newspaper or watching television: Several days 8. Moving or speaking so slowly that other people could have noticed. Or the opposite - being so fidgety or restless that you have been moving around a lot more than usual: Not at all 9. Thoughts that you would be better off , or of hurting yourself in some way: Not at all How difficult have these problems made it for you to do your work, take care of things at home, or get along with other people?: Not difficult at all Total Score: 4 WAGNER-Q SV Test - Statements CAD is a disease of the arteries in the heart: False Examples of risk factors for heart disease: True Angina is chest pain or discomfort: True The benefits of resistance training include: True Eating more meat and dairy products: False Anti-platelet medications such as aspirin are important: True The only effective way to manage stress: False An exercise warm-up slowly increases heart rate: True Prepared, processed foods usually have high sodium: True Depression is common after a heart attack: I Don't Know The statin medications lower cholesterol: True To control blood pressure, lower the amount of sodium: True If someone gets chest discomfort during walking: False Transfats are partially hydrogenated vegetable oils: True Sleep apnea that is not treated increases the risk: False To control cholesterol, one should become a vegetarian: False Someone knows if he/she is exercising at the right level: True Diabetes cannot be prevented with exercise & health eating: I Don't Know Stress is a large risk for heart attack: True A diet that can help lower blood pressure is rich in: True - Total Score Total Correct Responses: 18 Self-Efficacy Initial Assessment We would like to know how confident you are in doing certain activities. Please select your confidence level for:: Select your confidence level for the following using the scale 1-10 where 1 is not at all confident and 10 is totally confident. Your score is the average of all 6 responses. Fatigue: How confident are you that you can keep the fatigue caused by your disease from interfering with the things you want to do? Select Number: 7 Physical Discomfort or Pain: How confident are you that you can keep the physical discomfort or pain of your disease from interfering with the things you want to do? Select Number: 7 Emotional Distress: How confident are you that you can keep the emotional distress caused by your disease from interfering with the things you want to do? Select Number: 6 Other Symptoms or Health Problems: How confident are you that you can keep other symptoms or health problems from interfering with the things you want to do? Select Number: 6 Different Tasks and Activities: How confident are you that you can do the different tasks and activities needed to manage your health condition so as to reduce your need to see a doctor? Select Number: 8 Medication: How confident are you that you can do things other than just taking medication to reduce how much your illness affects your everyday life? Select Number: 8 Total Score:: 7 Nutrition Survey - Nutrition Survey Instructions Scoring Instructions: Scoring is as follows: Yes = 1 points. No = 0 point. Patient score that is >/=12 is considered to be at potential nutritional risk and could benefit from a referral to a registered dietitian. - Nutrition Survey Initial Have you lost >10 lbs over the past 2 months without trying?: No Are you following a special diet at home for diabetes, low fat, or low salt?: Yes Are you interested in meeting with a dietitian for help understanding your diet?: No Do you eat less than 3 meals a day?: No Do you eat fatty meats (nettles, sausage, ribs, etc), fried foods, desserts, large amounts of salad dressings, margarine, butter, or cheese most days?: No Do you have food allergies? [Enter types in comment field]: No Do you eat in restaurants more than 3 times a week?: No Do you season food with salt, seasoning salt, or garlic salt?: No Do you used canned, boxed, frozen meals, or soups, seasoning packets?: No Total Score:: 1
--- NOTE | 2019-08-11 12:02 | PCM.CR.HP2 ---
CR - History & Physical - General Arrival date:: 08/11/19 Arrival time:: 11:30 Date of Referral:: 08/03/19 Date of CR Evaluation:: 08/11/19 Referring Physician: DR LAZO Primary Diagnosis: CABG X3 - History of Present Cardiac Event Onset Date: Enter Onset Date of cardiac illnesses in Comment field below Current stable Angina Pectoris:: No Acute Myocardial Infarction within 12 months:: No Coronary Artery Bypass Graft:: Yes - X3 Heart valve replacement or repair:: No PTCA or coronary stenting:: No Heart or Heart-Lung Transplant:: No Heart Failure EF <35%:: No Type of Symptoms:: TIRED, SOB Interventions with present event:: CABG X3 Were there any complications?: NONE (HAD A FIB POST OP) - Medications Home Medications: Ambulatory Orders Medication Instructions Recorded Aspirin [Aspirin, Baby] 81 mg PO DAILY@0800 05/23/18 carvedilol 25 mg tablet 25 mg PO BID 04/28/19 cholestyramine (with sugar) 4 gram 4 g PO BID g 04/28/19 oral powder ranitidine 150 mg tablet 150 mg PO BID 04/28/19 denosumab 60 mg/mL subcutaneous 60 mg SC [id number] ml 04/30/19 syringe acetaminophen 325 mg capsule 650 mg PO Q6H PRN cap 07/21/19 apixaban 5 mg tablet 5 mg PO BID 07/21/19 atorvastatin 40 mg tablet 40 mg PO QHS 07/21/19 melatonin 3 mg tablet 3 mg PO HS PRN #1 tab 07/21/19 iaxauroz-vhy-xzzcm acid 400 1 tab PO DAILY tab 07/21/19 mcg-coQ10 250 mcg-lycop 375 mcg-lut tablet - Allergies Allergies/Adverse Reactions: Allergies amiodarone Allergy (Verified 08/03/19 08:33) rash rash codeine Allergy (Verified 08/03/19 08:28) Rash meperidine HCl [From Demerol] Allergy (Verified 08/03/19 08:28) Rash morphine Allergy (Verified 08/03/19 08:28) Rash Penicillins Allergy (Verified 08/03/19 08:28) Rash - Sleep Disorder Evaluation Hx of Sleep Apnea: No Do you snore loudly (louder than talking or can be heard through closed doors)?: No Do you often feel tired/ fatigued/ sleepy during daytime?: No Has anyone observed you stop breathing during sleep?: No History of Hypertension (for STOP score): Yes STOP Results: Negative Advanced Directives - Advanced Directives Power of Furniture Rental Consultant: Yes Living Will: Yes Advance Directives Information Provided: Yes Advance Directives on File: No - AT [facility], PT ENCOURAGED TO BRING COPY TO [facility] MEDICAL RECORDS DNR Order?:: No Past Medical History - Past Medical Illness Medical History: Past Medical History (Last Reviewed 08/03/19 @ 08:40 by BRYSON Myrick) Postoperative atrial fibrillation (Chronic) 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 - Past Surgical History Surgical History: Past Surgical History (Last Reviewed 08/03/19 @ 08:40 by BRYSON Myrick) S/P CABG x 3 (Chronic) Onset Date: ~06/11/19 Z95.1 CABG x3; JEFFERY to LAD, SVG to OM,SVG to PDA @ [facility] 06/11/19; Cataract extraction status, left eye Z98.42 History of foot surgery Z98.890 History of tonsillectomy Z90.89 History of total hysterectomy Z90.710 - Family History Summary Family History: Family History (Last Reviewed 08/03/19 @ 08:40 by BRYSON Myrick) Mother Heart disease Hypertension Father CAD (coronary artery disease) Myocardial infarction, Onset Age: 46 Brother Heart disease Hypertension Cancer prostate Brother Heart disease Brother Myocardial infarction, Onset Age: 70 Social History - Smoking History Smoking Status: Never smoker - Alcohol Use Alcohol Usage: Yes - OCCASIONAL - Substance Abuse Hx Substance Use: No - Occupation Occupation (List type of work in comments):: Retired - Hobbies, Recreation, Social Activities Hobbies: Watch TV, Walking Recreational Activities: I am able to engage in most, but not all activities Social Environment - Status Marital Status: Single - Current Living Arrangements Living Environment:: Family - LIVES WITH A FRIEND - Safety Do you feel safe in your surroundings?: Yes - Assistance Do you need any assistance at home?: NONE Review of Systems - Review of Systems Hints: Right click = Denies ([place]). Left click = Reports ([place]) Review of Present Symptoms: Reports: Operative Discomfort - SORENESS IN CHEST - HEALING, Wound Healing - WOUND IS CLEAN, DRY, WELL APPROXIMATED EDGES WITHOUT REDNESS, Fatigue - MININMAL FATIGUE, Heart Arrhythmia/Irregularities - A FIBRILLATION POST-OP, Appetite - Normal, Sleep - Normal - I HAVE BEEN HAVING TROUBLE SLEEPING TAKES MELATONIN. ENCOURAGED TO TALK WITH IF PROBLEM PERSISTS. Denies: Shortness of Breath at Rest, Shortness of Breath with Exertion, PVD, Angina, Dizziness/Lightheadedness, Sexual Changes - Pain Is Patient Pain Free?: Yes Risk Factor Assessment - Chief Complaint Chief Complaint: CURRENT CABG PT WHO PRESENTS TODAYFOR CR INITIAL EVALUATION - Vital Signs Temperature: 98.6 F Respiratory Rate: 16 Pulse Ox: 98 Blood Pressure: 158/76 Nailbeds:: PINK - Pulse Pulse Rate: 52 Pulse Rhythm: Regular - Hypertension How long have you been treated?: APPROX 10 YEARS On medication(s)?: LOPRESSOR Blood Pressure Sitting - Left Arm: 158/76 - Stress Stress: Recent - SURGERGY RELATED - Blood Cholesterol/Lipids Total Cholesterol (mg/dL) Goal = less than 200 mg/dL: 0 - CHOLESTEROL VALUES NOT AVAIL AT THIS TIME - Diabetes Nutrition Referral for Diabetes: No - Obesity Height: 5 ft 2 in Weight:: 161 lb Weight in Pounds: 161.0 lbs Weight Source: Estimated by Patient - PT H&P REPORT Body Mass Index (BMI): 29.4 Nutritional Referral for Obesity: No - Physical Inactivity Physical Inactivity: Recreational activity - WALKING AT HOME - Risk Stratification Risk Guidelines: Lowest Risk: Risk Factor for Smoking, Risk Factor for Dyslipidemia - NO PROFILE AVAIL., Risk Factor for Diabetes, Risk Factor for Obesity, Risk Factor for Sedentary Lifestyle, Risk Factor for Depression, Highest Risk: Risk Factor for Hypertension - For Smoking Smoking Risk Guidelines: Smoking Low Risk: None or quit greater than 6 months ago. Smoking Moderate Risk: Smoker or quit 6 months or less ago. Smoking High Risk: Smoker - For Dyslipidemia Dyslipidemia Risk Guidelines: Low Risk: Moderate Risk: High Risk: 15-25% fat 25.1-29% fat >/= 30% fat. <7% sat fat 7-9% sat fat >9% sat fat. <150 mg chol 150-299 mg chol >/= 300 mg chol. LDL <100 LDL 100-129 LDL >/= 130. Chol/HDL ratio <5.0 Chol/HDL ratio 5.0-6.0 Chol/HDL ratio >6.0. Triglycerides <100 Triglycerides 100-149 Triglycerides >/= 150 - For Diabetes Mellitus Diabetes Risk Guidelines: Diabetes Low Risk: HgA1c <6.5% and/or FBG <120. Diabetes Moderate Risk: HgA1c 6.6-7.9% and/or FBG 120-180. Diabetes High Risk: HgA1c >/= 8% and/or FBG >180 - For Obesity/Overweight Obesity/Overweight Risk Guidelines: Obesity Low Risk: BMI <25.0. Obesity Moderate Risk: BMI 25-29.9. Obesity High Risk: BMI >/= 30.0 - For Hypertension Hypertension Risk Guidelines: Hypertension Low Risk: Systolic <120 and Diastolic <80. Hypertension Moderate Risk: Systolic 120-139 and Diastolic 80-89. Hypertension High Risk: Systolic >/= 140 and Diastolic >/= 90 - For Sedentary Lifestyle Sedentary Lifestyle Risk Guidelines: Sedentary Lifestyle Low Risk: >/= 1,500 kcal/week. Sedentary Lifestyle Moderate Risk: 700-1,499 kcal/week. Sedentary Lifestyle High Risk: < 700 kcal/week - For Depression Depression Risk Guidelines: Depression Low Risk: Not clinically depressed. Depression Moderate Risk: Mildly depressed. Depression High Risk: Clinically depressed - Family History Family History: Family History (Last Reviewed 08/03/19 @ 08:40 by BRYSON Myrick) Mother Heart disease Hypertension Father CAD (coronary artery disease) Myocardial infarction, Onset Age: 46 Brother Heart disease Hypertension Cancer Brother Heart disease Brother Myocardial infarction, Onset Age: 70 Motivation - Motivation to Participate On a scale of 1 to 10, how prepared are you to commit to attending program?: 10 What do you see as barriers to successfully being able to complete the program?: NONE What do you see as the benefits of succesfully completing the program? In other words, what do you hope to get out of participating in the program?: I WANT TO GET MY STRENGTH BACK Are there issues you are dealing with that will interfere with completing the program?: NONE Do you have a spouse or signficant other, family or friends who will help support you to complete the program?: FRIEND
[2019-08-11 12:37] VITALS: BP 158/76; PULSE 52; RESP 16; TEMP 37; O2SAT 98; BMI 29.4
[2019-08-11 13:08] VITALS: BP 158/76
== END ==
PROVIDERS: Family Provider Nurse Practitioner; PCP Nurse Practitioner; Referring Provider Internal Medicine Cardiovascular Disease; Visit Provider Internal Medicine Cardiovascular Disease
DX: Z95.1 Presence of aortocoronary bypass graft (principal); I25.10 Atherosclerotic heart disease of native coronary artery without angina pectoris

== ENCOUNTER 2019-08-21 08:00 | Outpatient (RCR) | payer MEDICARE, BC, SELFPAY ==
[2019-08-11 12:37] VITALS: BMI 29.4
== END 2019-08-24 23:59 ==
LOC: CR 08:00
PROVIDERS: Family Provider Nurse Practitioner; PCP Nurse Practitioner; Referring Provider Internal Medicine Cardiovascular Disease; Visit Provider Internal Medicine Cardiovascular Disease
DX: I25.10 Atherosclerotic heart disease of native coronary artery without angina pectoris (principal); Z95.1 Presence of aortocoronary bypass graft
CPT/HCPCS: 93798

== ENCOUNTER 2019-09-23 08:00 | Outpatient (RCR) | payer MEDICARE, BC, SELFPAY ==
[2019-08-11 12:37] VITALS: BMI 29.4
--- NOTE | 2019-09-07 08:20 | CR.ITP_ITS ---
Exercise - 30-day Assessment - Visit Date of Eval: 09/07/19 Session #:: 9 - started her CR on 08/14/2019 - Stages of Change Stages of Change:: Action - Physician Prescribed Exercise Modalities: Treadmill, Airdyne, NuStep Frequency (days/week): 3 Duration (Minutes):: 30-45 Intensity: 60-80% age predicted maximum heart rate reserve METs - Progression: 0.5-1.0 MET, RPE 11-14 WEEK: 4.5 INCREASED FROM 2.5 DOING WELL Target Heart Rate:: 94-122 W/MAX HR OF 85 - Hypertension Resting Blood Pressure:: 138/54 Peak Exercise Blood Pressure:: 140/58 Medication Changes:: No - Intervention Home Exercise/Activity Goal:: Moderate Exercise 30 min/day x 5 days/wk - STARTED USING FACITILTY AT [employer] TO EXERCISE. - Education Goals:: Warm-up, RPE KIMBERLY Scale, S/S, Safe Exercise, Self-Monitoring - Exercise Program Goals Exercise Program Goals: Aerobic Activity >30 min Nutrition - 30-Day Assessment - Program Goals Nutrition Program Goals: LDL <70. Total Cholesterol <200. HDL >45. Triglycerides <150. HgbA1C <7%. BMI <25 - Visit Date of Eval: 09/07/19 - Stages of Change Stages of Change:: Action - Lipids Has the patient seen the dietitian?: No - Diabetes Diabetes:: No - Weight Management Weight:: 162 lb 8 oz - STABLE - Intervention Referral to dietitian:: No Referral to Diabetic Clinic:: No Will attend diet classes:: Yes - Education Attended class for:: Healthy eating Tobacco - 30-Day Assessment - Program Goals Tobacco Program Goals: Complete smoking cessation. Attend education classes. Improve Knowledge Test score - Stage of Change Stages of Change:: Action - Learning Barriers Learning Barriers: Participates in education, Change in behavior - Family Support Do you have family support?: Yes - Tobacco Use Tobacco Use: Non-smoker Do you use smokeless tobacco?: No - Intervention Smoking Cessation Referral:: No Individual Education/Counseling:: No Education Schedule Given:: Yes - Education Attended class for:: Risk Factors & Modifications, Living an Active Life, Nutrition Psychosocial - Initial Assess - Target Goals Target Goals: Assess presence or absence of depression. Using a valid screening tool, maximizes coping skills. Positive support system - Psychosocial Test Tool Used:: HANDS Depression Questionnaire - Assistive Devices Fall Risk Assessed:: No Psychosocial - 30-Day Assess - Target Goals Target Goals: Assess presence or absence of depression. Using a valid screening tool, maximizes coping skills. Positive support system - Stages of Change Stages of Change:: Action - Psychosocial Test Tool Used:: HANDS Depression Questionnaire - Intervention PS - Interventions: Yes Attend Stress Management Classes, No Referral to Mental Health, No Referral to [facility] Case Management, No Referral to Physician, No Uses Stress Management Skills - Education Attended classes for:: Coping techniques, Signs & symptoms of depression, Stress management, Relaxation techniques - Patient/Program Goal Preventative Medication(s):: Aspirin, GILLIAN inhibitor, Clopidogrel, Beta arya, Statin/lipid - Assistive Devices Assistive Devices:: None Fall Risk Assessed:: Yes Patient Health Questionnaire 30-Day Re-eval Assessment 1. Little interest or pleasure in doing things: Not at all 2. Feeling down, depressed, or hopeless: Not at all 3. Trouble falling or staying asleep, or sleeping too much: Not at all 4. Feeling tired or having little energy: Not at all 5. Poor appetite or overeating: Several days 6. Feeling bad about yourself -- or that you are a failure or have let yourself or your family down: Not at all 7. Trouble concentrating on things, such as reading the newspaper or watching television: Not at all 8. Moving or speaking so slowly that other people could have noticed. Or the opposite - being so fidgety or restless that you have been moving around a lot more than usual: Not at all 9. Thoughts that you would be better off , or of hurting yourself in some way: Not at all Total Score: 1 Self-Efficacy 30-Day Re-eval Assessment We would like to know how confident you are in doing certain activities. Please select your confidence level for:: Select your confidence level for the foll owing using the scale 1-10 where 1 is not at all confident and 10 is totally confident. Your score is the average of all 6 responses. Fatigue: How confident are you that you can keep the fatigue caused by your disease from interfering with the things you want to do? Select Number: 8 Physical Discomfort or Pain: How confident are you that you can keep the physical discomfort or pain of your disease from interfering with the things you want to do? Select Number: 8 Emotional Distress: How confident are you that you can keep the emotional distress caused by your disease from interfering with the things you want to do? Select Number: 7 Other Symptoms or Health Problems: How confident are you that you can keep other symptoms or health problems from interfering with the things you want to do? Select Number: 7 Different Tasks and Activities: How confident are you that you can do the different tasks and activities needed to manage your health condition so as to reduce your need to see a doctor? Select Number: 8 Medication: How confident are you that you can do things other than just taking medication to reduce how much your illness affects your everyday life? Select Number: 9 Total Score:: 7
[2019-09-07 08:24] VITALS: BP 138/54; BP 140/58
== END 2019-09-24 23:59 ==
LOC: CR 08:00
PROVIDERS: Family Provider Nurse Practitioner; PCP Nurse Practitioner; Referring Provider Internal Medicine Cardiovascular Disease; Visit Provider Internal Medicine Cardiovascular Disease
DX: I25.10 Atherosclerotic heart disease of native coronary artery without angina pectoris (principal); Z95.1 Presence of aortocoronary bypass graft
CPT/HCPCS: 93798

== ENCOUNTER 2019-10-21 08:00 | Outpatient (RCR) | payer MEDICARE, BC, SELFPAY ==
[2019-08-11 12:37] VITALS: BMI 29.4
[2019-09-25 01:12] VITALS: BP 138/54; BP 140/58
--- NOTE | 2019-10-09 08:11 | PCM.CR.ITP ---
Exercise - 60-Day Assessment - Visit Date of Eval: 10/09/19 Session #:: 25 - Stages of Change Stages of Change:: Action - Physician Prescribed Exercise Modalities: Treadmill, Airdyne, NuStep Frequency (days/week): 3 Duration (Minutes):: 30-45 Intensity: 60-80% age predicted maximum heart rate reserve METs - Progression: 0.5-1.0 MET, RPE 11-14 WEEK: 5.0 maintained Target Heart Rate:: 94-122 w/max HR 82 - Hypertension Resting Blood Pressure:: 140/64 - Resting BPs remain 140s/60s Peak Exercise Blood Pressure:: 140/64 - Report sent to Dr. Mustafa Medication Changes:: No - Intervention Home Exercise/Activity Goal:: Moderate Exercise 30 min/day x 5 days/wk - Education Goals:: Warm-up, RPE KIMBERLY Scale, S/S, Safe Exercise, Self-Monitoring - Exercise Program Goals Exercise Program Goals: Aerobic Activity >30 min Nutrition - 60-Day Assessment - Program Goals Nutrition Program Goals: LDL <70. Total Cholesterol <200. HDL >45. Triglycerides <150. HgbA1C <7%. BMI <25 - Visit Date of Eval: 10/09/19 - Stages of Change Stages of Change:: Action - Lipids Has the patient seen the dietitian?: Yes - Diabetes Diabetes:: No Insulin: No Non-Insulin Dependent?: No - Weight Management Weight:: 161 lb - stable - Intervention Referral to dietitian:: No Referral to Diabetic Clinic:: No Will attend diet classes:: Yes - Education Attended class for:: Healthy eating Tobacco - 60-Day Assessment - Program Goals Tobacco Program Goals: Complete smoking cessation. Attend education classes. Improve Knowledge Test score - Stage of Change Stages of Change:: Action - Learning Barriers Learning Barriers: Participates in education - Family Support Do you have family support?: No - Tobacco Use Tobacco Use: Non-smoker Do you use smokeless tobacco?: No - Intervention Smoking Cessation Referral:: No Individual Education/Counseling:: No Education Schedule Given:: Yes - Education Attended class for:: Treating Heart Disease, How The Heart Works, Risk Factors & Modifications, Living an Active Life, Nutrition, Emotions & Heart Disease, Stress Management & Relaxation, Sleep Disorders & Heart Disease Psychosocial - Initial Assess - Target Goals Target Goals: Assess presence or absence of depression. Using a valid screening tool, maximizes coping skills. Positive support system - Psychosocial Test Tool Used:: HANDS Depression Questionnaire - Assistive Devices Fall Risk Assessed:: Yes Psychosocial - 60-Day Assess - Target Goals Target Goals: Assess presence or absence of depression. Using a valid screening tool, maximizes coping skills. Positive support system - Stages of Change Stages of Change:: Action - Psychosocial Test Tool Used:: HANDS Depression Questionnaire - Intervention PS - Interventions: Yes Attend Stress Management Classes, Yes Uses Stress Management Skills, No Referral to Mental Health, No Referral to [facility] Case Management, No Referral to Physician - Education Attended classes for:: Coping techniques, Signs & symptoms of depression, Stress management, Relaxation techniques - Patient/Program Goal Preventative Medication(s):: Aspirin - patient reports taking medications as prescribed., GILLIAN inhibitor, Clopidogrel, Beta arya, Statin/lipid - Assistive Devices Assistive Devices:: None Fall Risk Assessed:: Yes Patient Health Questionnaire 60-Day Re-eval Assessment 1. Little interest or pleasure in doing things: Not at all 2. Feeling down, depressed, or hopeless: Not at all 3. Trouble falling or staying asleep, or sleeping too much: Not at all 4. Feeling tired or having little energy: Not at all 5. Poor appetite or overeating: Not at all 6. Feeling bad about yourself -- or that you are a failure or have let yourself or your family down: Not at all 7. Trouble concentrating on things, such as reading the newspaper or watching television: Not at all 8. Moving or speaking so slowly that other people could have noticed. Or the opposite - being so fidgety or restless that you have been moving around a lot more than usual: Not at all 9. Thoughts that you would be better off , or of hurting yourself in some way: Not at all Total Score: 0 Self-Efficacy 60-Day Re-eval Assessment We would like to know how confident you are in doing certain activities. Please select your confidence level for:: Select your confidence level for the following using the scale 1-10 where 1 is not at all confident and 10 is totally confident. Your score is the average of all 6 responses. Fatigue: How confident are you that you can keep the fatigue caused by your disease from interfering with the things you want to do? Select Number: 9 Physical Discomfort or Pain: How confident are you that you can keep the physical discomfort or pain of your disease from interfering with the things you want to do? Select Number: 9 Emotional Distress: How confident are you that you can keep the emotional distress caused by your disease from interfering with the things you want to do? Select Number: 8 Other Symptoms or Health Problems: How confident are you that you can keep other symptoms or health problems from interfering with the things you want to do? Select Number: 9 Different Tasks and Activities: How confident are you that you can do the different tasks and activities needed to manage your health condition so as to reduce your need to see a doctor? Select Number: 10 Medication: How confident are you that you can do things other than just taking medication to reduce how much your illness affects your everyday life? Select Number: 10 Total Score:: 9
[2019-10-09 08:15] VITALS: BP 140/64
== END 2019-10-24 23:59 ==
LOC: CR 08:00
PROVIDERS: Family Provider Nurse Practitioner; PCP Nurse Practitioner; Referring Provider Internal Medicine Cardiovascular Disease; Visit Provider Internal Medicine Cardiovascular Disease
DX: I25.10 Atherosclerotic heart disease of native coronary artery without angina pectoris (principal); Z95.1 Presence of aortocoronary bypass graft
CPT/HCPCS: 93798

== ENCOUNTER → 2019-10-27 08:24 | Outpatient (CLI) | payer MEDICARE, BC, SELFPAY ==
[2019-08-11 12:37] VITALS: BMI 29.4
[2019-10-27 09:29] LABS: Absolute Lymphocyte Count 1.47 X10^3/uL (0.83-4.51); Absolute Neutrophil Count 2.2 X10^3/uL (2.0-7.7); Basophil# 0.05 X10^3/uL; Basophil% 1.2 % (0-1); Eosinophil# 0.11 X10^3/uL; Eosinophils% 2.6 % (0-5); Hematocrit 35.7 % (37-47); Hemoglobin 11.7 g/dL (12.0-15.0); Lymphocyte # 1.47 X10^3/ul (4.0); Lymphocyte % 34.8 % (19-41); Mean Corp Hgb Conc 32.8 g/dL (32-36); Mean Corpuscular Hgb 30.9 pg (27.0-32.0); Mean Corpuscular Volume 94.2 fL (81-99); Mean Platelet Vol. 9.8 fl (6.2-12.0); Monocyte# 0.42 X10^3/uL; Monocyte% 9.9 % (0-10); NRBC Flagged by Analyzer 0 % (0-5); Neutrophil # 2.17 X10^3/uL (2.7-7.7); Neutrophil % 51.3 % (47-70); Platelet Count 167 K/mm3 (150-450); RBC Distribution Width SD 44.4 fl (35.1-43.9); Red Blood Count 3.79 M/mm3 (4.2-5.4); White Blood Count 4.2 K/mm3 (4.4-11.0)
[2019-10-27 10:02] LABS: ALB/GLOB Ratio 1.7 RATIO (0.9-2.4); AST(SGOT) 21 U/L (15-37); Alanine Aminotransfer ALT/SGPT 30 U/L (13-56); Albumin, Serum 3.8 g/dL (3.2-5.0); Alkaline Phosphatase 69 U/L (45-117); Anion Gap 6 (5-15); BUN 17 mg/dL (7-18); BUN/Creat Ratio 25.9 RATIO (10-20); Calcium,Total 8.9 mg/dL (8.5-10.1); Chloride 111 mmol/L (98-107); Cholesterol 187 mg/dL (200); Creatinine, Serum 0.66 mg/dL (0.55-1.02); EST Glomerular Filtration Rate 93 mL/min (>60); Est Glom Filt Rate - Afr Amer 113 mL/min (>60); Globulin 2.2 g/dL (2.2-4.2); Glucose 93 mg/dL (74-106); High Density Lipoprotein 59 mg/dL; Potassium 4.1 mmol/L (3.5-5.1); Sodium Level 143 mmol/L (136-145); Thyroid Stim Hormone (TSH) 2.33 uIU/mL (0.358-3.74); Triglycerides 96 mg/dL; Very Low Density Lipoprotein 19 mg/dL (5-40)
== END ==
PROVIDERS: Family Provider Nurse Practitioner; PCP Nurse Practitioner; Referring Provider Nurse Practitioner; Visit Provider Nurse Practitioner
DX: E78.00 Pure hypercholesterolemia, unspecified (principal)
CPT/HCPCS: 36415; 80053; 80061; 84443; 85025

== ENCOUNTER → 2019-11-06 10:34 | Outpatient (CLI) | payer MEDICARE, BC, SELFPAY ==
[2019-08-11 12:37] VITALS: BMI 29.4
--- NOTE | 2019-11-06 10:38 | BI_ITS ---
MAMMOGRAPHY - BILATERAL SCREENING REASON FOR EXAM: Female, 74 years old. Routine annual screening examination. PERTINENT HISTORY: Mother with breast cancer. TECHNIQUE: Digital bilateral breast dimitry (3D mammographic acquisition) in the CC and MLO projections. 2-D mediolateral oblique (MLO) and craniocaudad (CC) views of both breasts were obtained. CAD: Full Field Digital Mammography with Computer Added Detection was performed. COMPARISON: Comparison is made with prior study dated October 30, 2018 and October 02, 2017. FINDINGS: Breast Composition: The breasts are heterogeneously dense, which may obscure small masses. There are no dominant masses or suspicious calcifications. Stable benign-appearing bilateral axillary lymph No other significant abnormalities are identified. There has been no significant change since the prior study. BI/SCREEN MAMM (CAD) W/DIMITRY BILAT IMPRESSION: Stable bilateral screening mammogram. Yearly follow-up mammogram recommended. (A) ASSESSMENT CATEGORY: BIRADS Category 2: Benign. A letter regarding these results will be sent to the patient by the facility within 30 days. Approximately 10% of breast cancers are not detected by mammography. A normal mammogram should not delay biopsy of a clinically suspicious abnormality. [id number] Electronically Signed: Jaun Montero, at 12:47 EST , Service support ,
== END ==
PROVIDERS: Family Provider Nurse Practitioner; PCP Nurse Practitioner; Referring Provider Nurse Practitioner; Visit Provider Nurse Practitioner
DX: Z12.31 Encounter for screening mammogram for malignant neoplasm of breast (principal); Z80.3 Family history of malignant neoplasm of breast
CPT/HCPCS: 77063; 77067

== ENCOUNTER 2019-11-09 08:00 | Outpatient (RCR) | payer MEDICARE, BC, SELFPAY ==
[2019-08-11 12:37] VITALS: BMI 29.4
[2019-10-25 00:53] VITALS: BP 140/64
--- NOTE | 2019-11-09 08:53 | CR.ITP_ITS ---
Exercise - Final/Discharge - Visit Date of Eval: 11/09/19 Session #:: 36 - GRADUATED CR TODAY! 100% COMPLIANCE - Stages of Change Stages of Change:: Action - Physician Prescribed Exercise Modalities: Treadmill, Rower, Airdyne, NuStep Frequency (days/week): 3 Duration (Minutes):: 30-45 Intensity: 60-80% age predicted maximum heart rate reserve METs - Progression: 0.5-1.0 MET, RPE 11-14 WEEK: 5 INCREASED FROM INITIAL 2.5 METs Target Heart Rate:: 94-122 MAX HR 79 - Hypertension Do any of the following apply?: Yes, Medication, Diet Resting Blood Pressure:: 144/66 - PHYSICIAN IS YOHANA TO MONITOR HER BPs Peak Exercise Blood Pressure:: 162/64 - Intervention Home Exercise/Activity Goal:: Moderate Exercise 30 min/day x 5 days/wk - Education Goal Progress: Goal Met - Exercise Program Goals Exercise Program Goals: Aerobic Activity >30 min Nutrition - Final Assessment - Program Goals Nutrition Program Goals: LDL <70. Total Cholesterol <200. HDL >45. Triglycerides <150. HgbA1C <7%. BMI <25 - Visit Date of Eval: 11/09/19 - Stages of Change Stages of Change:: Action - Diabetes Diabetes:: No Insulin: No - Weight Management Height: 5 ft 2 in Weight:: 162 lb - STABLE Body Fat %:: 29.4 - Intervention Referral to dietitian:: No Referral to Diabetic Clinic:: No Will attend diet classes:: Yes - Education Education Goal Reached?: Yes Tobacco - Final Assessment - Program Goals Tobacco Program Goals: Complete smoking cessation. Attend education classes. Improve Knowledge Test score - Stage of Change Stages of Change:: Action - Family Support Do you have family support?: No - Tobacco Use Tobacco Use: Non-smoker Do you use smokeless tobacco?: No - Intervention Smoking Cessation Referral:: No Individual Education/Counseling:: No Education Schedule Given:: Yes - Education Education Goal Reached?: Yes Psychosocial - Initial Assess - Target Goals Target Goals: Assess presence or absence of depression. Using a valid screening tool, maximizes coping skills. Positive support system - Psychosocial Test Tool Used:: HANDS Depression Questionnaire - Assistive Devices Fall Risk Assessed:: Yes Psychosocial - Final Assessmen - Target Goals Target Goals: Assess presence or absence of depression. Using a valid screening tool, maximizes coping skills. Positive support system - Stages of Change Stages of Change:: Action - Psychosocial Test Tool Used:: HANDS Depression Questionnaire Tests Completed: SF - 36 survey completed, Mood Scale Test - Intervention PS - Interventions: Yes Attend Stress Management Classes, Yes Uses Stress Management Skills, No Referral to Mental Health, No Referral to [facility] Case Management, No Referral to Physician - Education Education Goal Reached?: Yes - Patient/Program Goal Preventative Medication(s):: Aspirin, GILLIAN inhibitor, Clopidogrel, Beta arya - PATIENT REPORTS TAKING HER MEDICATIONS PRESCRIBED., Statin/lipid - Assistive Devices Assistive Devices:: None Fall Risk Assessed:: Yes Patient Health Questionnaire Discharge Assessment 1. Little interest or pleasure in doing things: Not at all 2. Feeling down, depressed, or hopeless: Not at all 3. Trouble falling or staying asleep, or sleeping too much: Not at all 4. Feeling tired or having little energy: Not at all 5. Poor appetite or overeating: Not at all 6. Feeling bad about yourself -- or that you are a failure or have let yourself or your family down: Not at all 7. Trouble concentrating on things, such as reading the newspaper or watching television: Not at all 8. Moving or speaking so slowly that other people could have noticed. Or the opposite - being so fidgety or restless that you have been moving around a lot more than usual: Not at all 9. Thoughts that you would be better off , or of hurting yourself in some way: Not at all How difficult have these problems made it for you to do your work, take care of things at home, or get along with other people?: Not difficult at all Total Score: 0 WAGNER-Q SV Test - Statements CAD is a disease of the arteries in the heart: False Examples of risk factors for heart disease: True Angina is chest pain or discomfort: True The benefits of resistance training include: True Eating more meat and dairy products: False Anti-platelet medications such as aspirin are important: True The only effective way to manage stress: False An exercise warm-up slowly increases heart rate: True Prepared, processed foods usually have high sodium: True Depression is common after a heart attack: True The statin medications lower cholesterol: True To control blood pressure, lower the amount of sodium: True If someone gets chest discomfort during walking: False Transfats are partially hydrogenated vegetable oils: True Sleep apnea that is not treated increases the risk: False To control cholesterol, one should become a vegetarian: False Someone knows if he/she is exercising at the right level: True Diabetes cannot be prevented with exercise & health eating: False Stress is a large risk for heart attack: True A diet that can help lower blood pressure is rich in: True - Total Score Total Correct Responses: 20 Self-Efficacy Discharge Assessment We would like to know how confident you are in doing certain activities. Please select your confidence level for:: Select your confidence level for the following using the scale 1-10 where 1 is not at all confident and 10 is totally confident. Your score is the average of all 6 responses. Fatigue: How confident are you that you can keep the fatigue caused by your disease from interfering with the things you want to do? Select Number: 10 Physical Discomfort or Pain: How confident are you that you can keep the physical discomfort or pain of your disease from interfering with the things you want to do? Select Number: 10 Emotional Distress: How confident are you that you can keep the emotional distress caused by your disease from interfering with the things you want to do? Select Number: 10 Other Symptoms or Health Problems: How confident are you that you can keep other symptoms or health problems from interfering with the things you want to do? Select Number: 10 Different Tasks and Activities: How confident are you that you can do the different tasks and activities needed to manage your health condition so as to reduce your need to see a doctor? Select Number: 10 Medication: How confident are you that you can do things other than just taking medication to reduce how much your illness affects your everyday life? Select Number: 10 Total Score:: 10 Nutrition Survey - Nutrition Survey Instructions Scoring Instructions: Scoring is as follows: Yes = 1 points. No = 0 point. Patient score that is >/=12 is considered to be at potential nutritional risk and could benefit from a referral to a registered dietitian. - Nutrition Survey Discharge Have you lost >10 lbs over the past 2 months without trying?: No Are you following a special diet at home for diabetes, low fat, or low salt?: Yes Are you interested in meeting with a dietitian for help understanding your diet?: No Do you eat less than 3 meals a day?: No Do you eat fatty meats (nettles, sausage, ribs, etc), fried foods, desserts, large amounts of salad dressings, margarine, butter, or cheese most days?: No Do you have food allergies? [Enter types in comment field]: No Do you eat in restaurants more than 3 times a week?: No Do you season food with salt, seasoning salt, or garlic salt?: No Do you used canned, boxed, frozen meals, or soups, seasoning packets?: No Total Score:: 1
[2019-11-09 08:58] VITALS: BP 144/66; BP 162/64
== END 2019-11-24 23:59 ==
LOC: CR 08:00
PROVIDERS: Family Provider Nurse Practitioner; PCP Nurse Practitioner; Referring Provider Internal Medicine Cardiovascular Disease; Visit Provider Internal Medicine Cardiovascular Disease
DX: I25.10 Atherosclerotic heart disease of native coronary artery without angina pectoris (principal); Z95.1 Presence of aortocoronary bypass graft
CPT/HCPCS: 93798

== ENCOUNTER → 2019-11-23 14:17 | Outpatient (CLI) | payer MEDICARE, BC, SELFPAY ==
[2019-05-25 14:02] VITALS: BMI 29.2
[2019-08-11 12:37] VITALS: BMI 29.4
[2019-11-23 14:25] VITALS: BP 150/72; PULSE 57; RESP 16; TEMP 36.6; O2SAT 99; BMI 29.4
[2019-11-23] MEDS: DENOSUMAB 60 MG/ML ML SQ (14:29)
== END ==
PROVIDERS: Family Provider Internal Medicine; PCP Internal Medicine; Referring Provider Internal Medicine; Visit Provider Internal Medicine
DX: M81.0 Age-related osteoporosis without current pathological fracture (principal)
CPT/HCPCS: 96372; J0897

== ENCOUNTER → 2020-05-25 13:27 | Outpatient (CLI) | payer MEDICARE, BC, SELFPAY ==
[2019-12-14 08:52] VITALS: BMI 29.4
[2020-05-25 13:30] VITALS: BP 163/70; PULSE 62; RESP 16; TEMP 36.7; BMI 28.9
[2020-05-25] MEDS: DENOSUMAB 60 MG/ML SQ (13:35)
== END ==
PROVIDERS: PCP Nurse Practitioner; Referring Provider Internal Medicine; Visit Provider Internal Medicine
DX: M85.80 Other specified disorders of bone density and structure, unspecified site (principal)
CPT/HCPCS: 96372; J0897

== ENCOUNTER → 2020-06-28 08:16 | Outpatient (CLI) | payer MEDICARE, BC, SELFPAY ==
[2019-12-14 08:52] VITALS: BMI 29.4
[2020-05-25 13:30] VITALS: BMI 28.9
[2020-06-28 08:45] LABS: Absolute Lymphocyte Count 3.19 X10^3/uL (0.83-4.51); Absolute Neutrophil Count 2.8 X10^3/uL (2.0-7.7); Basophil# 0.07 X10^3/uL; Basophil% 1.1 % (0-1); Eosinophil# 0.13 X10^3/uL; Hematocrit 38.5 % (37-47); Hemoglobin 12.6 g/dL (12.0-15.0); Lymphocyte # 3.19 X10^3/ul (4.0); Lymphocyte % 48.4 % (19-41); Mean Corp Hgb Conc 32.7 g/dL (32-36); Mean Corpuscular Hgb 31.6 pg (27.0-32.0); Mean Corpuscular Volume 96.5 fL (81-99); Mean Platelet Vol. 9.8 fl (6.2-12.0); Monocyte# 0.44 X10^3/uL; Monocyte% 6.7 % (0-10); NRBC Flagged by Analyzer 0 % (0-5); Neutrophil # 2.75 X10^3/uL (2.7-7.7); Neutrophil % 41.6 % (47-70); Platelet Count 179 K/mm3 (150-450); RBC Distribution Width CV 12.5 % (11.6-14.6); RBC Distribution Width SD 43.6 fl (35.1-43.9); Red Blood Count 3.99 M/mm3 (4.2-5.4); White Blood Count 6.6 K/mm3 (4.4-11.0)
[2020-06-28 09:18] LABS: Vitamin D,25 Hydroxy 43.6 ng/mL
[2020-06-28 09:26] LABS: ALB/GLOB Ratio 1.3 RATIO (0.9-2.4); AST(SGOT) 16 U/L (15-37); Alanine Aminotransfer ALT/SGPT 23 U/L (13-56); Albumin, Serum 3.7 g/dL (3.2-5.0); Alkaline Phosphatase 59 U/L (45-117); Anion Gap 3 (5-15); BUN 19 mg/dL (7-18); BUN/Creat Ratio 26.9 RATIO (10-20); Calcium,Total 8.5 mg/dL (8.5-10.1); Chloride 107 mmol/L (98-107); Cholesterol 171 mg/dL (200); Creatinine, Serum 0.71 mg/dL (0.55-1.02); EST Glomerular Filtration Rate 85 mL/min (>60); Est Glom Filt Rate - Afr Amer 103 mL/min (>60); Globulin 2.8 g/dL (2.2-4.2); Glucose 97 mg/dL (74-106); High Density Lipoprotein 63 mg/dL; Potassium 4.2 mmol/L (3.5-5.1); Protein, Total 6.5 g/dL (6.4-8.2); Sodium Level 140 mmol/L (136-145); Triglycerides 85 mg/dL; Very Low Density Lipoprotein 17 mg/dL (5-40)
== END ==
PROVIDERS: PCP Nurse Practitioner; Referring Provider Nurse Practitioner; Visit Provider Nurse Practitioner
DX: E78.00 Pure hypercholesterolemia, unspecified (principal); D64.9 Anemia, unspecified; I10 Essential (primary) hypertension; E55.9 Vitamin D deficiency, unspecified
CPT/HCPCS: 36415; 80053; 80061; 82306; 84443; 85025

== ENCOUNTER → 2020-07-13 10:45 | Outpatient (CLI) | payer MEDICARE, BC, SELFPAY ==
[2020-06-29 11:31] VITALS: BMI 29.0
--- NOTE | 2020-07-13 10:50 | RAD_ITS ---
STUDY: X-RAY - LEFT FOOT CLINICAL: Left foot pain for 2 months, no specific injury. TECHNIQUE: 2 view(s) of the foot. COMPARISON: None. FINDINGS: There is a small plantar calcaneal enthesophyte. Otherwise, unremarkable talus, calcaneus, and tarsal bones. Normal visualized subtalar, talonavicular, calcaneocuboid, tarsal and tarsometatarsal articulations. Normal metatarsi. Normal metatarsophalangeal joint of the great toe. Normal tibial and fibular sesamoid bones. Normal interphalangeal joint of the great toe. Normal phalanges of the great toe. Normal second through fifth metatarsophalangeal joints. Normal interphalangeal joints and phalanges of the lesser toes. The soft tissue structures are unremarkable. RAD/Foot 2 Views IMPRESSION: Small plantar calcaneal enthesophyte. Otherwise, unremarkable x-ray examination of the left foot. Electronically Signed: Nahun Nicole MD at 12:56 EDT Tel , Service support ,
== END ==
PROVIDERS: PCP Nurse Practitioner; Referring Provider Nurse Practitioner; Visit Provider Nurse Practitioner
DX: M79.672 Pain in left foot (principal); M85.80 Other specified disorders of bone density and structure, unspecified site
CPT/HCPCS: 73620

== ENCOUNTER → 2020-11-08 12:20 | Outpatient (CLI) | payer MEDICARE, BC, SELFPAY ==
[2020-06-29 11:31] VITALS: BMI 29.0
--- NOTE | 2020-11-08 12:22 | BI_ITS ---
MAMMOGRAPHY - BILATERAL SCREENING REASON FOR EXAM: Female, 75 years old. Routine annual screening examination. PERTINENT HISTORY: Mother with breast cancer. TECHNIQUE: Digital bilateral breast dimitry (3D mammographic acquisition) in the CC and MLO projections. 2-D mediolateral oblique (MLO) and craniocaudad (CC) views of both breasts were obtained. CAD: Full Field Digital Mammography with Computer Added Detection was performed. COMPARISON: Comparison is made with prior study dated 11/06/2019 and 10/30/2018. FINDINGS: Breast Composition: The breasts are heterogeneously dense, which may obscure small masses. There are no dominant masses or suspicious calcifications. Stable small benign-appearing bilateral axillary lymph nodes. No other significant abnormalities are identified. There has been no significant change since the prior study. BI/SCREEN MAMM (CAD) W/DIMITRY BILAT IMPRESSION: Stable bilateral screening mammogram. Yearly follow-up mammogram recommended. (A) ASSESSMENT CATEGORY: BIRADS Category 2: Benign. A letter regarding these results will be sent to the patient by the facility within 30 days. Approximately 10% of breast cancers are not detected by mammography. A normal mammogram should not delay biopsy of a clinically suspicious abnormality. [id number] Electronically Signed: Jaun Montero, at 13:42 EST , Service support ,
--- NOTE | 2020-11-08 12:27 | BD_ITS ---
STUDY: DUAL ENERGY X-RAY ABSORPTIOMETRY / DXA REASON FOR EXAM: Female, 75 years old. CODIFIER -- HX OF HRT -- TAKES MULTIVITAMINB -- CURRENTLY ON PROLIA x3-4 YRS, HX OF FOSAMAX AND RECLAST PRIOR -- DOES MODERATE AMOUNT OF EXERCISE -- FAMILY HX OF OSTEO -- MARTIR OF 1-2 INCHES TECHNIQUE: Bone Mineral Density (BMD) measurements of lumbar spine and bilateral hips were obtained. COMPARISON: Comparison is made with prior study dated 10/30/2018. FINDINGS: Lumbar Spine (L1-L4): g/cm2 (1.436) / T-score (2.1) / Z-score (3.9) Findings are suggestive of normal bone density with a low fracture risk. Left Femur Total: g/cm2 (0.805) / T-score (-1.6) / Z-score (0.3) Left Femoral Neck: g/cm2 (0.732) / T-score (-2.2) / Z-score (-0.2) Right Femur Total: g/cm2 (0.845) / T-score (-1.3) / Z-score (0.6) Right Femoral Neck: g/cm2 (0.781) / T-score (-1.8) / Z-score (0.2) The T-Scores on the most recent prior examination were: Lumbar Spine (L1-L4): There has been improvement of bone density since the previous examination. Left Femur Total: which represents an improvement of 1.9%. Right Femur Total: which represents an improvement of 2.7%. BD/Dexa Bone Density Study IMPRESSION: The patient is considered osteopenic as outlined below according to World Jean Organization (WHO) criteria with a high fracture risk. There has been improvement of bone density since the previous examination. Reference Information: The T-score is the number of standard deviations above or below the standard which is normal for young adults at their peak bone mineral density. The World Health Organization (WHO) interprets the T-scores as follows: Above -1 Normal bone density Between -1 and -2.5 Osteopenia Equal to / or below -2.5 Osteoporosis As a practical clinical guideline, osteopenia may be graded as follows: Mild -1 through -1.5 Moderate -1.6 through -2.0 Severe -2.1 through -2.4 The Z-score is the number of standard deviations above or below age-matched controls. A Z-score of less than -1.5 would be considered abnormal. References: 1. NIH Osteoporosis and Related Bone Diseases www osteo.org 2. International Society for Clinical Densitometry www iscd.org 3. National Osteoporosis Foundation www nof.org Electronically Signed: Jaun Montero, at 15:47 EST , Service support ,
== END ==
PROVIDERS: PCP Nurse Practitioner; Referring Provider Nurse Practitioner; Visit Provider Nurse Practitioner
DX: Z78.0 Asymptomatic menopausal state (principal); Z12.31 Encounter for screening mammogram for malignant neoplasm of breast
CPT/HCPCS: 77063; 77067; 77080

== ENCOUNTER → 2020-11-29 08:14 | Outpatient (CLI) | payer MEDICARE, BC, SELFPAY ==
[2020-06-29 11:31] VITALS: BMI 29.0
[2020-11-29 09:16] LABS: Absolute Lymphocyte Count 4.36 X10^3/uL (0.83-4.51); Absolute Neutrophil Count 2.4 X10^3/uL (2.0-7.7); Basophil# 0.08 X10^3/uL; Basophil% 1.1 % (0-1); Eosinophil# 0.13 X10^3/uL; Eosinophils% 1.8 % (0-5); Hematocrit 39.1 % (37-47); Hemoglobin 12.6 g/dL (12.0-15.0); Lymphocyte # 4.36 X10^3/ul (4.0); Lymphocyte % 58.8 % (19-41); Mean Corp Hgb Conc 32.2 g/dL (32-36); Mean Corpuscular Hgb 31.3 pg (27.0-32.0); Mean Corpuscular Volume 97.3 fL (81-99); Mean Platelet Vol. 9.7 fl (6.2-12.0); Monocyte# 0.45 X10^3/uL; Monocyte% 6.1 % (0-10); NRBC Flagged by Analyzer 0 % (0-5); Neutrophil # 2.38 X10^3/uL (2.7-7.7); Neutrophil % 31.9 % (47-70); POSITIVE MORPHOLOGY YES; Platelet Count 186 K/mm3 (150-450); RBC Distribution Width CV 12.3 % (11.6-14.6); RBC Distribution Width SD 44.3 fl (35.1-43.9); Red Blood Count 4.02 M/mm3 (4.2-5.4); White Blood Count 7.4 K/mm3 (4.4-11.0)
[2020-11-29 09:18] LABS: Differential Indicated SCAN CRITERIA MET
[2020-11-29 09:41] LABS: Vitamin D,25 Hydroxy 27.5 ng/mL
[2020-11-29 09:49] LABS: AST(SGOT) 21 U/L (15-37); Alanine Aminotransfer ALT/SGPT 30 U/L (13-56); Albumin, Serum 3.8 g/dL (3.2-5.0); Alkaline Phosphatase 61 U/L (45-117); Cholesterol 195 mg/dL (200); Globulin 2.6 g/dL (2.2-4.2); High Density Lipoprotein 64 mg/dL; Protein, Total 6.4 g/dL (6.4-8.2); Thyroid Stim Hormone (TSH) 3.32 uIU/mL (0.358-3.74); Triglycerides 90 mg/dL; Very Low Density Lipoprotein 18 mg/dL (5-40)
[2020-11-29 09:50] LABS: Differential Comment SCANNED; Reactive Lymphocyte 1+
== END ==
PROVIDERS: PCP Nurse Practitioner; Referring Provider Internal Medicine Cardiovascular Disease; Visit Provider Internal Medicine Cardiovascular Disease
DX: E55.9 Vitamin D deficiency, unspecified (principal); C91.10 Chronic lymphocytic leukemia of B-cell type not having achieved remission; E78.00 Pure hypercholesterolemia, unspecified; M85.80 Other specified disorders of bone density and structure, unspecified site
CPT/HCPCS: 36415; 80061; 80076; 82306; 84443; 85025

== ENCOUNTER → 2020-11-30 13:16 | Outpatient (CLI) | payer MEDICARE, BC, SELFPAY ==
[2019-12-14 08:52] VITALS: BMI 29.4
[2020-06-29 11:31] VITALS: BMI 29.0
[2020-11-30] MEDS: DENOSUMAB 60 MG/ML SQ (13:39)
[2020-11-30 13:49] VITALS: BP 164/63; PULSE 51; RESP 16; O2SAT 100; BMI 29.0
== END ==
PROVIDERS: PCP Nurse Practitioner; Referring Provider Internal Medicine; Visit Provider Internal Medicine
DX: M85.80 Other specified disorders of bone density and structure, unspecified site (principal); M81.0 Age-related osteoporosis without current pathological fracture
CPT/HCPCS: 96372; J0897

== ENCOUNTER 2021-01-23 16:25 | Outpatient (RCR) | payer MEDICARE, BC, SELFPAY ==
[2021-01-05 09:37] VITALS: BMI 28.1
== END 2021-01-23 23:59 ==
LOC: IMMUN 16:25
PROVIDERS: PCP Nurse Practitioner; Referring Provider Family Medicine; Visit Provider Family Medicine
DX: Z23 Encounter for immunization (principal)
CPT/HCPCS: 0011A; 0012A

== ENCOUNTER 2021-03-31 07:24 | Day surgery (SDC) | payer MEDICARE, BC, SELFPAY ==
[2021-03-09 09:34] VITALS: BMI 28.7
--- NOTE | 2021-03-31 07:00 | HP_ITS ---
Intake Vital Signs 03/09/21 Height 5 ft 2 in 03/09/21 Weight: 157 lb 03/09/21 BMI 28.7 03/09/21 BP 170/70 H 03/09/21 Blood Pressure Location Rt brachial 03/09/21 Position Sitting 03/09/21 Respiration 18 03/09/21 Pulse 57 L 03/09/21 Pulse Source NIBP 03/09/21 Temp 97.3 F L 03/09/21 Temp Source Temporal 03/09/21 Pulse Oximetry (%) 98 03/09/21 Oxygen Delivery Method room air Intake Visit Reasons: CSCOPE Chief Complaint: c-scope, hx of polyps Terrapin Fisher Required: No Is patient in pain?: No Allergies amiodarone Allergy (Verified 03/09/21 09:35) rash codeine Allergy (Verified 03/09/21 09:35) Rash meperidine HCl [From Demerol] Allergy (Verified 03/09/21 09:35) Rash morphine Allergy (Verified 03/09/21 09:35) Rash Penicillins Allergy (Verified 03/09/21 09:35) Rash Medications Aspirin [Aspirin, Baby] 81 mg PO DAILY@0800 05/23/18 [History Confirmed 03/09/21] carvedilol 25 mg tablet 25 mg PO BID 04/28/19 [History Confirmed 03/09/21] denosumab 60 mg/mL subcutaneous syringe 60 mg SC [id number] ml 04/30/19 [History Confirmed 03/09/21] nrlpusco-anb-hecac acid 400 mcg-coQ10 250 mcg-lycop 375 mcg-lut tablet 1 tab PO DAILY tab 07/21/19 [History Confirmed 03/09/21] famotidine 20 mg tablet 20 mg PO DAILY 09/14/19 [History Confirmed 03/09/21] pravastatin 40 mg tablet 40 mg PO DAILY 12/14/19 [History Confirmed 03/09/21] coenzyme Q10 200 mg capsule 200 mg PO DAILY 06/29/20 [History Confirmed 03/09/21] amlodipine 2.5 mg tablet 2.5 mg PO DAILY #90 tab 01/05/21 [Rx Confirmed 03/09/21] losartan 100 mg tablet 100 mg PO DAILY #90 tab 01/05/21 [Rx Confirmed 03/09/21] Is last menstrual period known: No Post menopausal: Yes Patient : No PFSH Medical History Postoperative atrial fibrillation (Chronic) Atherosclerotic heart disease of [place] coronary artery without angina pectoris (Chronic) Monitoring for anticoagulant use (Chronic) Abnormal cardiac CT angiography (Acute) Essential tremor (Chronic) Premature ventricular contraction (Chronic) GERD (gastroesophageal reflux disease) (Chronic) Pure hypercholesterolemia (Chronic) Essential hypertension (Chronic) CLL (chronic lymphocytic leukemia) (Chronic) Surgical History (Updated 03/09/21 @ 09:34 by Lydia Santana) S/P CABG x 3 (Chronic ~06/11/19) History of colonoscopy (Acute ~2014) Cataract extraction status, left eye (Resolved) History of foot surgery (Resolved) History of tonsillectomy (Resolved) History of total hysterectomy (Resolved) Family History Mother Heart disease Hypertension Father CAD (coronary artery disease) Myocardial infarction, Onset Age: 46 Brother Heart disease Hypertension Cancer prostate Brother Heart disease Brother Myocardial infarction, Onset Age: 70 Social History (Updated 03/09/21 @ 10:[address] Christiano Gaitan MD) Smoking Status: Never smoker alcohol intake: current details: occasional substance use type: does not use caffeine: Yes Type: coffee Number of servings: 2, tea Number of servings: 2 HPI HPI HPI: ISAMAR ORDOÑEZ, is a 75 F who presents to the office today for HPI HPI Surgical H&P: Yes HPI: ISAMAR ORDOÑEZ, is a 75 F who presents to the office today for history of colon polyps. The patient reports that she had her last colonoscopy 5 to 6 years ago. She had polyps and was recommended to repeat in 5 years. The patient not having any abdominal pain or blood in her stool. She has no family history of colon cancer. ROS General General: No weight change, appetite, fatigue, colon cancer, breast cancer or weakness HEENT HEENT: No difficulty swallowing, eye injury, eye surgery, swollen glands or hoarseness Endo Endocrine: No thyroid disease, diabetes mellitus, thyroid cancer, Hair loss, heat intolerance or cold intolerance Musc Musculoskeletal: Yes arthritis; no back problems, rheumatoid arthritis, gout or joint pain Cardio Cardiovascular: Yes heart disease and high blood pressure; no murmur, pacemaker, atrial fibrillation, heart attack, heart stent, palpitations, shortness of breat with exertion or chest pain Psych Psychiatric: No depression, anxiety or hearing voices Resp Respiratory: No shortness of breath, No sleep apnea, No cough, No COPD, No asthma, No emphysema, No wheezing Gastro Gastrointestinal: No abdominal pain, No nausea or vomiting, No diarrhea, No constipation, No blood in stool, No acid reflux, No hemorrhoids, No ulcers, No gallbladder problem, No black,tarry stools Roberto Carlos Hematologic: No blood thinners, No blood disorders, No bleeding, No anemia, No blood clots Neuro Neurologic: No weakness Exam Const General: cooperative Orientation: alert, oriented x3 Resp Effort & Inspection: normal respiratory effort Auscultation: clear to auscultation bilaterally Cardio Rate: regular rate Rhythm: regular rhythm Heart Sounds: no murmurs GI Inspection: non-distended Palpation: soft, nontender Assessment & Plan Problems 1. History of colon polyps Z86.010 Plan Patient has a history of colon polyps and she is due for surveillance colonoscopy. I explained endoscopy in detail to the patient. I explained the risks including but not limited to stroke or heart attack with anesthesia, perforation of the GI tract, bleeding, infection. I explained that any of these could necessitate further emergency surgery. The patient understands and all questions were answered sufficiently. The patient wishes to proceed with procedure. Christiano Gaitan MD Pager: [facility] [address] [place] [address], [address] [place] [address] Office: Orders Orders: Colonoscopy Today Z86.010 Coding Level of Care Code Off vis,new,level 3 Diagnoses History of colon polyps Z86.010
[2021-03-31 07:42] VITALS: BP 149/66; PULSE 60; RESP 14; TEMP 36.2; O2SAT 99; BMI 28.1
[2021-03-31] MEDS: Lactated Ringers 1,000 ML 100 ML IV (08:00)
--- NOTE | 2021-03-31 08:17 | HP.PCM_ITS ---
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 Is patient in pain?: No Allergies amiodarone Allergy (Verified 03/09/21 09:35) rash codeine Allergy (Verified 03/09/21 09:35) Rash meperidine HCl [From Demerol] Allergy (Verified 03/09/21 09:35) Rash morphine Allergy (Verified 03/09/21 09:35) Rash Penicillins Allergy (Verified 03/09/21 09:35) Rash Medications Aspirin [Aspirin, Baby] 81 mg PO DAILY@0800 05/23/18 [History Confirmed 03/09/21] carvedilol 25 mg tablet 25 mg PO BID 04/28/19 [History Confirmed 03/09/21] denosumab 60 mg/mL subcutaneous syringe 60 mg SC [id number] ml 04/30/19 [History Confirmed 03/09/21] kchiujph-xdq-fdazm acid 400 mcg-coQ10 250 mcg-lycop 375 mcg-lut tablet 1 tab PO DAILY tab 07/21/19 [History Confirmed 03/09/21] famotidine 20 mg tablet 20 mg PO DAILY 09/14/19 [History Confirmed 03/09/21] pravastatin 40 mg tablet 40 mg PO DAILY 12/14/19 [History Confirmed 03/09/21] coenzyme Q10 200 mg capsule 200 mg PO DAILY 06/29/20 [History Confirmed 03/09/21] amlodipine 2.5 mg tablet 2.5 mg PO DAILY #90 tab 01/05/21 [Rx Confirmed 03/09/21] losartan 100 mg tablet 100 mg PO DAILY #90 tab 01/05/21 [Rx Confirmed 03/09/21] Is last menstrual period known: No Post menopausal: Yes Patient : No PFSH Medical History Postoperative atrial fibrillation (Chronic) Atherosclerotic heart disease of [place] coronary artery without angina pectoris (Chronic) Monitoring for anticoagulant use (Chronic) Abnormal cardiac CT angiography (Acute) Essential tremor (Chronic) Premature ventricular contraction (Chronic) GERD (gastroesophageal reflux disease) (Chronic) Pure hypercholesterolemia (Chronic) Essential hypertension (Chronic) CLL (chronic lymphocytic leukemia) (Chronic) Surgical History (Updated 03/09/21 @ 09:34 by Lydia Santana) S/P CABG x 3 (Chronic ~06/11/19) History of colonoscopy (Acute ~2014) Cataract extraction status, left eye (Resolved) History of foot surgery (Resolved) History of tonsillectomy (Resolved) History of total hysterectomy (Resolved) Family History Mother Heart disease Hypertension Father CAD (coronary artery disease) Myocardial infarction, Onset Age: 46 Brother Heart disease Hypertension Cancer prostate Brother Heart disease Brother Myocardial infarction, Onset Age: 70 Social History (Updated 03/09/21 @ 10:[address] Christiano Gaitan MD) Smoking Status: Never smoker alcohol intake: current details: occasional substance use type: does not use caffeine: Yes Type: coffee Number of servings: 2, tea Number of servings: 2 HPI HPI HPI: ISAMAR ORDOÑEZ, is a 75 F who presents to the office today for HPI HPI Surgical H&P: Yes HPI: ISAMAR ORDOÑEZ, is a 75 F who presents to the office today for history of colon polyps. The patient reports that she had her last colonoscopy 5 to 6 years ago. She had polyps and was recommended to repeat in 5 years. The patient not having any abdominal pain or blood in her stool. She has no family history of colon cancer. ROS General General: No weight change, appetite, fatigue, colon cancer, breast cancer or weakness HEENT HEENT: No difficulty swallowing, eye injury, eye surgery, swollen glands or hoarseness Endo Endocrine: No thyroid disease, diabetes mellitus, thyroid cancer, Hair loss, heat intolerance or cold intolerance Musc Musculoskeletal: Yes arthritis; no back problems, rheumatoid arthritis, gout or joint pain Cardio Cardiovascular: Yes heart disease and high blood pressure; no murmur, pacemaker, atrial fibrillation, heart attack, heart stent, palpitations, shortness of breat with exertion or chest pain Psych Psychiatric: No depression, anxiety or hearing voices Resp Respiratory: No shortness of breath, No sleep apnea, No cough, No COPD, No asthma, No emphysema, No wheezing Gastro Gastrointestinal: No abdominal pain, No nausea or vomiting, No diarrhea, No constipation, No blood in stool, No acid reflux, No hemorrhoids, No ulcers, No gallbladder problem, No black,tarry stools Roberto Carlos Hematologic: No blood thinners, No blood disorders, No bleeding, No anemia, No blood clots Neuro Neurologic: No weakness Exam Const General: cooperative Orientation: alert, oriented x3 Resp Effort & Inspection: normal respiratory effort Auscultation: clear to auscultation bilaterally Cardio Rate: regular rate Rhythm: regular rhythm Heart Sounds: no murmurs GI Inspection: non-distended Palpation: soft, nontender Assessment & Plan Problems 1. History of colon polyps Z86.010 Plan Patient has a history of colon polyps and she is due for surveillance colonoscopy. I explained endoscopy in detail to the patient. I explained the risks including but not limited to stroke or heart attack with anesthesia, perforation of the GI tract, bleeding, infection. I explained that any of these could necessitate further emergency surgery. The patient understands and all questions were answered sufficiently. The patient wishes to proceed with procedure. Christiano Gaitan MD Pager: [facility] [address] [place] [address], [address] [place] [address] Office: I have re-examined the patient. There are no clinical changes since date of exam. Assessment & Plan Assessment/Plan (1) History of colon polyps:
[2021-03-31 08:50] VITALS: BP 110/46; BP 149/66; PULSE 68; RESP 16; TEMP 36.4; O2SAT 97
--- NOTE | 2021-03-31 08:52 | OP.COLON_ITS ---
Patient Name: Leslie Medeiros Procedure Date: 03/31/2021 8:24 AM Date of : 1945 Age: 75 Procedure: Colonoscopy Indications: Surveillance: Personal history of adenomatous polyps on last colonoscopy 5 years ago Providers: Christiano Gaitan MD Referring MD: Iman Rodriguez NP Medicines: Monitored Anesthesia Care Patient Profile: This is a 75 year old female. Refer to note in patient chart for documentation of history and physical. Last Colonoscopy: 5 years ago. Complications: No immediate complications. Estimated blood loss: Minimal. Procedure: Pre-Anesthesia Assessment: - Prior to the procedure, a History and Physical was performed, and patient medications and allergies were reviewed. The patient's tolerance of previous anesthesia was also reviewed. The risks and benefits of the procedure and the sedation options and risks were discussed with the patient. All questions were answered, and informed consent was obtained. Prior Anticoagulants: The patient has taken no previous anticoagulant or antiplatelet agents. After reviewing the risks and benefits, the patient was deemed in satisfactory condition to undergo the procedure. After I obtained informed consent, the scope was passed under direct vision. Throughout the procedure, the patient's blood pressure, pulse, and oxygen saturations were monitored continuously. The colonoscope was introduced through the anus and advanced to the cecum, identified by appendiceal orifice and ileocecal valve. The colonoscopy was performed without difficulty. The patient tolerated the procedure well. The quality of the bowel preparation was good. Scope In: 8:31:03 AM Scope Withdrawal Time 0 hours 6 minutes 7 seconds Scope Out: 8:44:40 AM Total Procedure Duration Time 0 hours 13 minutes 37 seconds Findings: The entire examined colon appeared normal on direct and retroflexion views. Multiple small-mouthed diverticula were found in the sigmoid colon. Impression: - The entire examined colon is normal on direct and retroflexion views. - Diverticulosis in the sigmoid colon. - No specimens collected. Recommendation: - Discharge patient to home. - Resume previous diet. - Continue present medications. - Repeat colonoscopy is not recommended due to current age (66 years or older) for screening purposes. Procedure Code(s): --- Professional --- 21202, Colonoscopy, flexible; diagnostic, including collection of specimen(s) by brushing or washing, when performed (separate procedure) Diagnosis Code(s): --- Professional --- Z86.010, Personal history of colonic polyps K57.30, Diverticulosis of large intestine without perforation or abscess without bleeding CPT copyright 2017 [employer]. All rights reserved. The codes documented in this report are preliminary and upon director of channel marketing review may be revised to meet current compliance requirements. Christiano Gaitan MD 03/31/2021 8:52:29 AM This report has been signed electronically. Number of Addenda: 0 Note Initiated On: 03/31/2021 8:24 AM
--- NOTE | 2021-03-31 08:52 | OP.CCLET_ITS ---
03/31/2021 Iman Rodriguez, FE [address] [place] [address] Re : Colonoscopy procedure for Leslie Medeiros Dear Ms. Rodriguez This procedure was performed on Wednesday, March 31, 2021. My impressions and recommendations are as follows: Impressions : - The entire examined colon is normal on direct and retroflexion views. - Diverticulosis in the sigmoid colon. - No specimens collected. Recommendations : - Discharge patient to home. - Resume previous diet. - Continue present medications. - Repeat colonoscopy is not recommended due to current age (66 years or older) for screening purposes. My findings are described in the full procedure note, which is enclosed. If I can be of further assistance, please feel free to contact me at Doctor phone number(s): , Work: . Sincerely, Christiano Gaitan MD 03/31/2021 8:52:29 AM This report has been signed electronically.
[2021-03-31 08:55] VITALS: BP 109/48; BP 149/66; PULSE 64; RESP 16; O2SAT 98
[2021-03-31 09:00] VITALS: BP 139/56; BP 149/66; PULSE 65; RESP 16; O2SAT 97
[2021-03-31 09:05] VITALS: BP 128/59; BP 149/66; PULSE 61; RESP 16; TEMP 36.5; O2SAT 98
[2021-03-31 09:30] VITALS: BP 149/66
== END 2021-03-31 09:30 ==
LOC: EN 07:24 → AC 07:25
PROVIDERS: PCP Nurse Practitioner; Referring Provider Nurse Practitioner; Visit Provider Surgery
PROC: 0DJD8ZZ Inspection of Lower Intestinal Tract, Via Natural or Artificial Opening Endoscopic (ICD-10-PCS; CPT 45378; principal; 2021-03-31 08:25)
DX: K57.30 Diverticulosis of large intestine without perforation or abscess without bleeding (principal); I25.10 Atherosclerotic heart disease of native coronary artery without angina pectoris; I10 Essential (primary) hypertension; E66.9 Obesity, unspecified; I48.91 Unspecified atrial fibrillation; E78.00 Pure hypercholesterolemia, unspecified; K21.9 Gastro-esophageal reflux disease without esophagitis; Z90.49 Acquired absence of other specified parts of digestive tract; Z90.89 Acquired absence of other organs; Z90.710 Acquired absence of both cervix and uterus; Z95.1 Presence of aortocoronary bypass graft; Z68.28 Body mass index [BMI] 28.0-28.9, adult; Z79.82 Long term (current) use of aspirin; Z79.899 Other long term (current) drug therapy; Z86.010 Personal history of colon polyps
CPT/HCPCS: 45378; J7120; J2405

== ENCOUNTER → 2021-06-29 08:04 | Outpatient (CLI) | payer MEDICARE, BC, SELFPAY ==
[2021-06-29 08:56] LABS: Absolute Lymphocyte Count 5.02 X10^3/uL (0.83-4.51); Basophil# 0.05 X10^3/uL; Basophil% 0.6 % (0-1); Eosinophil# 0.12 X10^3/uL; Eosinophils% 1.4 % (0-5); Hematocrit 38.5 % (37-47); Hemoglobin 12.5 g/dL (12.0-15.0); Lymphocyte # 5.02 X10^3/ul (0.83-4.51); Lymphocyte % 57.8 % (19-41); Mean Corp Hgb Conc 32.5 g/dL (32-36); Mean Corpuscular Hgb 31.3 pg (27.0-32.0); Mean Corpuscular Volume 96.3 fL (81-99); Mean Platelet Vol. 9.7 fl (6.2-12.0); Monocyte# 0.46 X10^3/uL; Monocyte% 5.3 % (0-10); NRBC Flagged by Analyzer 0 % (0-5); Neutrophil # 3.01 X10^3/uL (2.7-7.7); Neutrophil % 34.7 % (47-70); POSITIVE DIFFERENTIAL YES; POSITIVE MORPHOLOGY YES; Platelet Count 190 K/mm3 (150-450); RBC Distribution Width CV 12.4 % (11.6-14.6); White Blood Count 8.7 K/mm3 (4.4-11.0)
[2021-06-29 08:59] LABS: Differential Indicated SCAN CRITERIA MET
[2021-06-29 09:31] LABS: Atypical Lymphocyte 1+ %; Differential Comment SCANNED; Reactive Lymphocyte 1+
[2021-06-29 09:40] LABS: Vitamin D,25 Hydroxy 37.7 ng/mL
[2021-06-29 09:42] LABS: ALB/GLOB Ratio 1.5 RATIO (0.9-2.4); AST(SGOT) 23 U/L (15-37); Alanine Aminotransfer ALT/SGPT 27 U/L (13-56); Albumin, Serum 3.7 g/dL (3.2-5.0); Alkaline Phosphatase 57 U/L (45-117); Anion Gap 9 (5-15); BUN 13 mg/dL (7-18); Bilirubin, Direct 0.13 mg/dL (0.00-0.30); Calcium,Total 8.6 mg/dL (8.5-10.1); Chloride 106 mmol/L (98-107); Cholesterol 184 mg/dL (200); Creatinine, Serum 0.59 mg/dL (0.55-1.02); EST Glomerular Filtration Rate 105 mL/min (>60); Est Glom Filt Rate - Afr Amer 127 mL/min (>60); Globulin 2.5 g/dL (2.2-4.2); Glucose 96 mg/dL (74-106); High Density Lipoprotein 64 mg/dL; Potassium 4.2 mmol/L (3.5-5.1); Protein, Total 6.2 g/dL (6.4-8.2); Sodium Level 143 mmol/L (136-145); Thyroid Stim Hormone (TSH) 3.26 uIU/mL (0.358-3.74); Triglycerides 93 mg/dL; Very Low Density Lipoprotein 19 mg/dL (5-40)
== END ==
PROVIDERS: Internal Medicine Cardiovascular Disease; PCP Nurse Practitioner; Referring Provider Nurse Practitioner; Visit Provider Nurse Practitioner
DX: E55.9 Vitamin D deficiency, unspecified (principal); E78.00 Pure hypercholesterolemia, unspecified
CPT/HCPCS: 36415; 80053; 80061; 82248; 82306; 84443; 85025

== ENCOUNTER → 2022-04-19 | Outpatient (CLI) | payer MEDICARE, BC, SELFPAY ==
[2022-04-19 09:05] LABS: AST(SGOT) 20 U/L (15-37); Alanine Aminotransfer ALT/SGPT 24 U/L (13-56); Albumin, Serum 3.6 g/dL (3.2-5.0); Alkaline Phosphatase 66 U/L (45-117); Bilirubin, Direct 0.13 mg/dL (0.00-0.30); Cholesterol 159 mg/dL (200); Globulin 2.2 g/dL (2.2-4.2); High Density Lipoprotein 62 mg/dL; Protein, Total 5.8 g/dL (6.4-8.2); Triglycerides 70 mg/dL; Very Low Density Lipoprotein 14 mg/dL (5-40)
== END | disposition home or self-care (01) ==
LOC: LAB 08:00
PROVIDERS: PCP Nurse Practitioner; Referring Provider Nurse Practitioner Family; Visit Provider Nurse Practitioner Family
DX: E78.00 Pure hypercholesterolemia, unspecified (principal)
CPT/HCPCS: 36415; 80061; 80076

== ENCOUNTER → 2022-09-04 | Outpatient (CLI) | payer MEDICARE, BC, SELFPAY ==
[2022-09-04 09:52] LABS: AST(SGOT) 18 U/L (15-37); Alanine Aminotransfer ALT/SGPT 22 U/L (13-56); Albumin, Serum 3.5 g/dL (3.2-5.0); Alkaline Phosphatase 73 U/L (45-117); Bilirubin, Direct 0.13 mg/dL (0.00-0.30); Cholesterol 195 mg/dL (200); Globulin 2.7 g/dL (2.2-4.2); High Density Lipoprotein 57 mg/dL; Protein, Total 6.2 g/dL (6.4-8.2); Triglycerides 134 mg/dL; Very Low Density Lipoprotein 27 mg/dL (5-40)
== END | disposition home or self-care (01) ==
LOC: LAB 08:17
PROVIDERS: PCP Nurse Practitioner Family; Referring Provider Nurse Practitioner Family; Visit Provider Nurse Practitioner Family
DX: E78.00 Pure hypercholesterolemia, unspecified (principal)
CPT/HCPCS: 36415; 80061; 80076

== ENCOUNTER → 2023-05-10 | Outpatient (CLI) | payer MEDICARE, BC, SELFPAY ==
[2023-05-10 09:40] LABS: AST(SGOT) 25 U/L (15-37); Alanine Aminotransfer ALT/SGPT 42 U/L (13-56); Albumin, Serum 3.7 g/dL (3.2-5.0); Alkaline Phosphatase 83 U/L (45-117); Bilirubin, Direct 0.14 mg/dL (0.00-0.30); Cholesterol 183 mg/dL (200); Globulin 2.8 g/dL (2.2-4.2); High Density Lipoprotein 57 mg/dL; Protein, Total 6.5 g/dL (6.4-8.2); Triglycerides 95 mg/dL; Very Low Density Lipoprotein 19 mg/dL (5-40)
== END | disposition home or self-care (01) ==
LOC: LAB 08:12
PROVIDERS: PCP Nurse Practitioner Family; Referring Provider Nurse Practitioner Family; Visit Provider Nurse Practitioner Family
DX: E78.00 Pure hypercholesterolemia, unspecified (principal)
CPT/HCPCS: 36415; 80061; 80076

== ENCOUNTER → 2023-09-16 | Outpatient (CLI) | payer MEDICARE, BC, SELFPAY ==
--- NOTE | 2023-09-16 06:42 | CT_ITS ---
STUDY: CT ABDOMEN AND PELVIS WITH CONTRAST REASON FOR EXAM: Female, 78 years old. abdominal pain, hx CLL RADIATION DOSAGE (If Supplied By Facility): CTDIvol = ( 24.58 ) mGy, DLP = ( 986.01 ) mGycm TECHNIQUE: Transaxial images were obtained from the dome of the diaphragm to the symphysis pubis with oral contrast. Oral and amp; IV Readi-CAT and amp; 100mL Isovue-370 was administered. Sagittal and coronal images were reconstructed. Individualized dose optimization techniques were used for this CT. COMPARISON: 12/31/2015 FINDINGS: The visualized lung bases are unremarkable. Cardiomegaly. Multiple hepatic cysts. Bilobed cyst in the posterior segment right lobe of liver is increased in size from 2.2 cm in diameter to 4.2 cm in diameter. Normal gallbladder and extrahepatic biliary system. Normal spleen. Normal pancreas. Normal bilateral adrenal glands. Normal right kidney. Normal left kidney. There is a small hiatal hernia. Small diverticulum second portion the duodenum. There are multiple colonic diverticula consistent with diverticulosis. There is non-visualization of the appendix. There is diffuse atherosclerotic calcification of the abdominal aorta, without a demonstrated aneurysm. Normal inferior vena cava. No change in several small retroperitoneal lymph nodes consistent with treated leukemia. No enlarged lymph nodes to suggest lymphadenopathy. Normal urinary bladder. Normal abdominal wall. Mild levoscoliosis lumbar spine. CT/Abdomen/Pelvis WITH Contrast IMPRESSION: No acute abnormality. No lymphadenopathy to suggest active leukemia.. Electronically Signed: Osmani Ceron MD at 22:50 EDT ,
[2023-09-16 07:21] LABS: CREATININE FINGERSTICK < 0.9 mg/dL (0.55-1.02); EGFR FINGERSTICK > 60.0000 mL/min (>60)
== END | disposition home or self-care (01) ==
PROVIDERS: PCP Nurse Practitioner Family; Referring Provider Nurse Practitioner Family; Visit Provider Nurse Practitioner Family
DX: R10.9 Unspecified abdominal pain (principal)
CPT/HCPCS: 74177; Q9967; A4216

== ENCOUNTER → 2023-09-24 | Outpatient (CLI) | payer MEDICARE, BC, SELFPAY ==
--- NOTE | 2023-09-24 08:46 | BI_ITS ---
MAMMOGRAPHY - BILATERAL SCREENING REASON FOR EXAM: Female, 78 years old. Routine annual screening examination. PERTINENT HISTORY: Mother with breast cancer. TECHNIQUE: Digital bilateral breast dimitry (3D mammographic acquisition) in the CC and MLO projections. 2-D mediolateral oblique (MLO) and craniocaudad (CC) views of both breasts were obtained. CAD: Full Field Digital Mammography with Computer Added Detection was performed. COMPARISON: Comparison is made with prior study November 08, 2020 and November 06, 2019. FINDINGS: Breast Composition: The breasts are heterogeneously dense, which may obscure small masses. There are no dominant masses or suspicious calcifications. Stable small benign-appearing bilateral axillary lymph nodes. No other significant abnormalities are identified. There has been no significant change since the prior study. BI/SCRN MAMM (CAD)W/DIMITRY BILAT IMPRESSION: Stable bilateral screening mammogram. Yearly follow-up mammogram recommended. (A) ASSESSMENT CATEGORY: BIRADS Category 2: Benign. A letter regarding these results will be sent to the patient by the facility within 30 days. Approximately 10% of breast cancers are not detected by mammography. A normal mammogram should not delay biopsy of a clinically suspicious abnormality. [id number] Electronically Signed: Jaun Montero MD at 10:04 EDT ,
--- NOTE | 2023-09-24 08:48 | BD_ITS ---
STUDY: DUAL ENERGY X-RAY ABSORPTIOMETRY / DXA REASON FOR EXAM: Female, 78 years old. Z780 TECHNIQUE: Bone Mineral Density (BMD) measurements of lumbar spine and bilateral hips were obtained. COMPARISON: Comparison is made with prior study dated August 09, 2020. FINDINGS: Lumbar Spine (L1-L4): g/cm2 (1.141) / T-score (0.9) / Z-score (3.5) Findings are suggestive of normal bone density with a low fracture risk. Left Femur Total: g/cm2 (0.741) / T-score (-1.6) / Z-score (0.4) Left Femoral Neck: g/cm2 (0.592) / T-score (-2.3) / Z-score (0.0) Right Femur Total: g/cm2 (0.789) / T-score (-1.3) / Z-score (0.8) Right Femoral Neck: g/cm2 (0.662) / T-score (-1.7) / Z-score (0.6) The T-Scores on the most recent prior examination were: Lumbar Spine (L1-L4): There has been worsening of bone density since the previous examination. Left Femur Total: which represents a worsening of 0.5%. Right Femur Total: which represents an improvement of 0.8%. BD/Dexa Bone Density Study IMPRESSION: The patient is considered osteopenic as outlined below according to World Jean Organization (WHO) criteria with a high fracture risk. There has been worsening of bone density since the previous examination. Reference Information: The T-score is the number of standard deviations above or below the standard which is normal for young adults at their peak bone mineral density. The World Health Organization (WHO) interprets the T-scores as follows: Above -1 Normal bone density Between -1 and -2.5 Osteopenia Equal to / or below -2.5 Osteoporosis As a practical clinical guideline, osteopenia may be graded as follows: Mild -1 through -1.5 Moderate -1.6 through -2.0 Severe -2.1 through -2.4 The Z-score is the number of standard deviations above or below age-matched controls. A Z-score of less than -1.5 would be considered abnormal. References: 1. NIH Osteoporosis and Related Bone Diseases www osteo.org 2. International Society for Clinical Densitometry www iscd.org 3. National Osteoporosis Foundation www nof.org Electronically Signed: Jaun Montero MD at 9:20 EDT ,
== END | disposition home or self-care (01) ==
LOC: OPBD 08:40
PROVIDERS: PCP Nurse Practitioner Family; Referring Provider Nurse Practitioner Family; Visit Provider Nurse Practitioner Family
DX: Z78.0 Asymptomatic menopausal state (principal); Z12.31 Encounter for screening mammogram for malignant neoplasm of breast
CPT/HCPCS: 77063; 77067; 77080

== ENCOUNTER → 2023-12-02 | Outpatient (CLI) | payer MEDICARE, BC, SELFPAY ==
[2023-12-02 10:08] LABS: AST(SGOT) 30 U/L (15-37); Alanine Aminotransfer ALT/SGPT 55 U/L (13-56); Albumin, Serum 3.8 g/dL (3.2-5.0); Alkaline Phosphatase 125 U/L (45-117); Bilirubin, Direct 0.16 mg/dL (0.00-0.30); Cholesterol 201 mg/dL (200); Globulin 2.6 g/dL (2.2-4.2); High Density Lipoprotein 51 mg/dL; Protein, Total 6.4 g/dL (6.4-8.2); Triglycerides 126 mg/dL; Very Low Density Lipoprotein 25 mg/dL (5-40)
[2023-12-03 09:47] LABS: Amylase 42 U/L (25-115); GGTP 178 U/L (5-55); Lipase 27 U/L (13-75)
== END | disposition home or self-care (01) ==
LOC: LAB 08:37
PROVIDERS: PCP Nurse Practitioner Family; Referring Provider Nurse Practitioner Family; Visit Provider Nurse Practitioner Family
DX: R10.9 Unspecified abdominal pain (principal); E78.00 Pure hypercholesterolemia, unspecified
CPT/HCPCS: 36415; 80061; 80076; 82150; 82977; 83690

== ENCOUNTER → 2023-12-19 | Outpatient (CLI) | payer MEDICARE, BC, SELFPAY ==
--- NOTE | 2023-12-19 08:42 | NM_ITS ---
CLINICAL: 78-year-old female with history of abdominal pain and nausea. RADIONUCLIDE HEPATOBILIARY SCINTIGRAPHY COMPARISON: None available FINDINGS: Following the intravenous administration of 5.5 mCi of 99m Tc Mebrofenin, hepatobiliary images reveal: 1. Relatively prompt and homogeneous radiopharmaceutical concentration is noted by a normal sized liver. No parenchymal defects are identified. 2. Gallbladder activity is identified at 75 minutes post radiopharmaceutical administration. 3. Small intestinal tract is observed at 30 minutes following tracer injection. 4. Washout of the radiopharmaceutical by the hepatic parenchyma appears qualitatively normal. Cholecystokinin (0.02 ug/kg) was administered intravenously over a 30-minute period. The post CCK gallbladder ejection fraction calculated at 20 minutes following Cholecystokinin administration was noted to be 97.0 % (normal greater than 35%). During 30 minutes of post CCK imaging, there is no scintigraphic evidence of reflux of the radiotracer into the common hepatic duct or significant refilling of the gallbladder. NM/Hepatobilliary Img w/Pharm Int IMPRESSION: 1. NORMAL 99m Tc Mebrofenin hepatobiliary imaging examination with Cholecystokinin. A. A gallbladder ejection fraction calculated to be greater than 35% following the administration of Cholecystokinin makes the probability of functional hepatobiliary disease (gallbladder and/or sphincter of Oddi dyskinesia) and/or organic hepatobiliary disease (chronic acalculous cholecystitis and/or cystic duct syndrome) to be low. (Krishan Cardozo et al, Journal of Nuclear Medicine 32:1695, 1991). Electronically Signed: Osmani Eldridge DO at 22:50 EST ,
== END | disposition home or self-care (01) ==
LOC: NM 08:41
PROVIDERS: PCP Nurse Practitioner Family; Referring Provider Internal Medicine; Visit Provider Internal Medicine
DX: R10.9 Unspecified abdominal pain (principal)
CPT/HCPCS: 78227; A9537; J2805

== ENCOUNTER → 2024-01-10 | Outpatient (CLI) | payer MEDICARE, BC, SELFPAY ==
--- NOTE | 2024-01-10 07:15 | US_ITS ---
STUDY: ABDOMINAL ULTRASOUND - RIGHT UPPER QUADRANT REASON FOR VISIT: Female, 78 years old Upper abdominal pain, unspecified TECHNIQUE: Ultrasound evaluation of the right upper quadrant was performed with real-time and static marie-scale imaging. TECHNICAL QUALITY: Adequate. COMPARISON: Comparison is made with prior CT scan abdomen and pelvis dated September 16, 2023. FINDINGS: Liver: The liver measures 13.2 cm. There is increased echogenicity consistent with fatty infiltration. The bile ducts are within normal limits. There is hepatic color flow. The direction of portal flow is hepatopetal. Once again, there are 2, small left hepatic cyst is larger measuring 9 mm x 9 mm x 6 mm. Is also evidence of a septated cyst in the right lobe measuring 3.6 x 3.4 cm x 4.5 cm. Gallbladder: Normal distended gallbladder. The gallbladder wall measures 2.0 mm. There is a negative sonographic Shearer''s sign. There is no pericholecystic fluid. There are no gallstones. Sludge is seen in the gallbladder lumen. Common Bile Duct (C.B.D.): The common bile duct measures 8.7 mm. Pancreas: Normal size of the head, body and tail of the pancreas. There is normal echogenicity of the pancreas. There is no demonstrated pancreatic mass or cyst. Right Kidney: Normal size of the right kidney. The right kidney measures 11.2 cm x 4.9 cm x 3.8 cm. Normal renal cortex. The right cortex measures 1.2 cm. There is no demonstrated renal mass or cyst. There is no right hydronephrosis. US/Abdomen Limited IMPRESSION: Stable examination. Electronically Signed: Jaun Montero MD at 14:18 EST ,
== END | disposition home or self-care (01) ==
LOC: US 07:15
PROVIDERS: PCP Nurse Practitioner Family
DX: R10.10 Upper abdominal pain, unspecified (principal)
CPT/HCPCS: 76705

== ENCOUNTER → 2024-02-25 | Outpatient (CLI) | payer MEDICARE, BC, SELFPAY ==
[2024-02-25 09:02] LABS: Absolute Neutrophil Count 3.2 X10^3/uL (2.0-7.7); Basophil# 0.09 X10^3/uL; Basophil% 0.7 % (0-1); Eosinophil# 0.16 X10^3/uL; Eosinophils% 1.3 % (0-5); Hemoglobin 11.9 g/dL (12.0-15.0); Lymphocyte % 68.2 % (19-41); Mean Corpuscular Hgb 32.2 pg (27.0-32.0); Mean Corpuscular Volume 94.9 fL (81-99); Monocyte# 0.57 X10^3/uL; Monocyte% 4.5 % (0-10); NRBC Flagged by Analyzer 0 % (0-5); Neutrophil # 3.21 X10^3/uL (2.7-7.7); Neutrophil % 25.1 % (47-70); POSITIVE DIFFERENTIAL YES; Platelet Count 183 K/mm3 (150-450); RBC Distribution Width CV 13.3 % (11.6-14.6); RBC Distribution Width SD 46.6 fl (35.1-43.9); Red Blood Count 3.69 M/mm3 (4.2-5.4); White Blood Count 12.8 K/mm3 (4.4-11.0)
[2024-02-25 09:06] LABS: Differential Indicated SCAN CRITERIA MET
[2024-02-25 09:25] LABS: Vitamin D,25 Hydroxy 80.5 ng/mL
[2024-02-25 09:32] LABS: ALB/GLOB Ratio 1.5 RATIO (0.9-2.4); AST(SGOT) 22 U/L (15-37); Alanine Aminotransfer ALT/SGPT 32 U/L (13-56); Albumin, Serum 3.5 g/dL (3.2-5.0); Alkaline Phosphatase 67 U/L (45-117); Anion Gap 4 (5-15); BUN 10 mg/dL (7-18); BUN/Creat Ratio 18.2 RATIO (10-20); Calcium,Total 8.7 mg/dL (8.5-10.1); Chloride 111 mmol/L (98-107); Cholesterol 151 mg/dL (200); Creatinine, Serum 0.55 mg/dL (0.55-1.02); EST Glomerular Filtration Rate 113 mL/min (>60); Est Glom Filt Rate - Afr Amer 137 mL/min (>60); Globulin 2.4 g/dL (2.2-4.2); Glucose 98 mg/dL (74-106); High Density Lipoprotein 64 mg/dL; Potassium 4.2 mmol/L (3.5-5.1); Protein, Total 5.9 g/dL (6.4-8.2); Sodium Level 142 mmol/L (136-145); Thyroid Stim Hormone (TSH) 4.35 uIU/mL (0.358-3.74); Triglycerides 67 mg/dL; Very Low Density Lipoprotein 13 mg/dL (5-40)
[2024-02-25 11:13] LABS: Differential Comment SCANNED
== END | disposition home or self-care (01) ==
PROVIDERS: PCP Nurse Practitioner Family; Referring Provider Internal Medicine Cardiovascular Disease; Visit Provider Internal Medicine Cardiovascular Disease
DX: K21.9 Gastro-esophageal reflux disease without esophagitis (principal); E55.9 Vitamin D deficiency, unspecified; I10 Essential (primary) hypertension
CPT/HCPCS: 36415; 80053; 80061; 82306; 84443; 85025

== ENCOUNTER → 2024-06-02 | Outpatient (CLI) | payer MEDICARE, BC, SELFPAY ==
[2024-06-02 09:49] LABS: AST(SGOT) 18 U/L (15-37); Alanine Aminotransfer ALT/SGPT 26 U/L (13-56); Albumin, Serum 3.7 g/dL (3.2-5.0); Alkaline Phosphatase 77 U/L (45-117); Bilirubin, Direct 0.19 mg/dL (0.00-0.30); Cholesterol 150 mg/dL (200); Globulin 2.4 g/dL (2.2-4.2); High Density Lipoprotein 61 mg/dL; Protein, Total 6.1 g/dL (6.4-8.2); T4 Free Direct 0.81 ng/dL (0.76-1.46); Thyroid Stim Hormone (TSH) 2.63 uIU/mL (0.358-3.74); Triglycerides 84 mg/dL; Very Low Density Lipoprotein 17 mg/dL (5-40)
== END | disposition home or self-care (01) ==
LOC: LAB 08:44
PROVIDERS: Nurse Practitioner Family; PCP Nurse Practitioner Family; Visit Provider Nurse Practitioner Family
DX: R79.89 Other specified abnormal findings of blood chemistry (principal); E78.00 Pure hypercholesterolemia, unspecified
CPT/HCPCS: 36415; 80061; 80076; 84439; 84443

== ENCOUNTER → 2024-09-25 | Outpatient (CLI) | payer MEDICARE, BC, SELFPAY ==
--- NOTE | 2024-09-25 09:33 | BI_ITS ---
MAMMOGRAPHY - BILATERAL SCREENING REASON FOR EXAM: Female, 79 years old. Routine annual screening examination. PERTINENT HISTORY: Mother with breast cancer. TECHNIQUE: Digital bilateral breast dimitry (3D mammographic acquisition) in the CC and MLO projections. 2-D mediolateral oblique (MLO) and craniocaudad (CC) views of both breasts were obtained. CAD: Full Field Digital Mammography with Computer Added Detection was performed. COMPARISON: Comparison is made with prior study dated September 24, 2023 and November 08, 2020. FINDINGS: Breast Composition: The breasts are heterogeneously dense, which may obscure small masses. Stable bilateral fat-containing axillary lymph nodes. There are no dominant masses or suspicious calcifications. No other significant abnormalities are identified. There has been no significant change since the prior study. BI/SCRN MAMM (CAD)W/DIMITRY BILAT IMPRESSION: Stable bilateral screening mammogram. Yearly follow-up mammogram recommended. (A) ASSESSMENT CATEGORY: BIRADS Category 2: Benign. A letter regarding these results will be sent to the patient by the facility within 30 days. Approximately 10% of breast cancers are not detected by mammography. A normal mammogram should not delay biopsy of a clinically suspicious abnormality. [id number] Electronically Signed: Jaun Montero MD at 10:33 EDT ,
== END | disposition home or self-care (01) ==
LOC: OPBI 09:32
PROVIDERS: PCP Nurse Practitioner Family; Referring Provider Nurse Practitioner Family; Visit Provider Nurse Practitioner Family
DX: Z12.31 Encounter for screening mammogram for malignant neoplasm of breast (principal)
CPT/HCPCS: 77063; 77067

== ENCOUNTER → 2024-12-23 | Outpatient (CLI) | payer MEDICARE, BC, SELFPAY ==
[2024-12-23 09:55] LABS: AST(SGOT) 20 U/L (15-37); Alanine Aminotransfer ALT/SGPT 25 U/L (13-56); Albumin, Serum 3.8 g/dL (3.2-5.0); Alkaline Phosphatase 72 U/L (45-117); Bilirubin, Direct 0.16 mg/dL (0.00-0.30); Cholesterol 160 mg/dL (200); Globulin 2.5 g/dL (2.2-4.2); High Density Lipoprotein 74 mg/dL; Protein, Total 6.3 g/dL (6.4-8.2); Triglycerides 78 mg/dL; Very Low Density Lipoprotein 16 mg/dL (5-40)
== END | disposition home or self-care (01) ==
LOC: LAB 08:34
PROVIDERS: PCP Nurse Practitioner Family; Referring Provider Nurse Practitioner Family; Visit Provider Nurse Practitioner Family
DX: E78.00 Pure hypercholesterolemia, unspecified (principal)
CPT/HCPCS: 36415; 80061; 80076

== ENCOUNTER → 2025-02-25 | Outpatient (CLI) | payer MEDICARE, BC, SELFPAY ==
[2025-02-25 10:04] LABS: Color, Urine Yellow (Yellow); Glucose, Dipstick Normal (Normal); Ketone-Dipstick Negative (Negative); Leukocyte Esterase-Dipstick 500 /ul (Negative); Nitrite-Dipstick Positive (Negative); Occult Blood-Urine 50 /ul (Negative); Protein-Dipstick Negative (Negative); Urine Bilirubin Dipstick Negative (Negative); Urine Clarity Clear (Clear); Urine Urobilinogen Normal (Normal)
[2025-02-25 12:12] LABS: ALB/GLOB Ratio 2.5 RATIO (0.9-2.4); AST(SGOT) 27 U/L (<=31); Alanine Aminotransfer ALT/SGPT 25 U/L (<=34); Albumin, Serum 4.1 g/dL (3.4-4.8); Alkaline Phosphatase 71 U/L (35-104); Anion Gap 10 (5-15); BUN 11 mg/dL (4-19); BUN/Creat Ratio 16.4 RATIO (10-20); Calcium,Total 9.3 mg/dL (7.6-11.0); Carbon Dioxide 25.8 mmol/L (21.0-32.0); Chloride 107 mmol/L (98-108); Creatinine, Serum 0.67 mg/dL (0.70-1.20); EST Glomerular Filtration Rate 88 (>60); Globulin 1.6 g/dL (2.2-4.2); Glucose 96 mg/dL (70-99); Potassium 4.3 mmol/L (3.3-5.1); Protein, Total 5.8 g/dL (5.9-8.4); Sodium Level 143 mmol/L (133-145); Total Bilirubin 0.39 mg/dL (0.00-1.30); Vitamin B12 556 pg/mL (180-914); Vitamin D,25 Hydroxy 60.9 ng/mL (30-100)
[2025-02-25 17:18] LABS: Microalbumin,Random Urine 14.6 mg/L (NO RANGE EST.); Microalbumin:Creatinine Ratio 226.7 mg/g CRE
== END | disposition home or self-care (01) ==
LOC: LAB 09:05
PROVIDERS: PCP Nurse Practitioner Family; Referring Provider Nurse Practitioner Family; Visit Provider Nurse Practitioner Family
DX: N39.0 Urinary tract infection, site not specified (principal); C91.10 Chronic lymphocytic leukemia of B-cell type not having achieved remission; E55.9 Vitamin D deficiency, unspecified; I10 Essential (primary) hypertension
CPT/HCPCS: 36415; 80053; 81002; 82043; 82306; 82570; 82607; 82746; 87077; 87086; 87088; 87186

== ENCOUNTER → 2025-09-14 | Outpatient (CLI) | payer MEDICARE, BC, SELFPAY ==
[2025-09-14 10:45] LABS: AST(SGOT) 31 U/L (<=31); Alanine Aminotransfer ALT/SGPT 23 U/L (<=34); Albumin, Serum 4.1 g/dL (3.4-4.8); Alkaline Phosphatase 65 U/L (35-104); Bilirubin, Direct 0.15 mg/dL (0.00-0.30); Cholesterol 159 mg/dL (<=200); Globulin 1.7 g/dL (2.2-4.2); Low Density Lipoprotein Calc. 80 mg/dL; Triglycerides 113 mg/dL; Very Low Density Lipoprotein 23 mg/dL (5-40); cholesterol:hdl ratio screen 2.71
== END | disposition home or self-care (01) ==
LOC: LAB 09:12
PROVIDERS: PCP Nurse Practitioner Family; Referring Provider Nurse Practitioner Family; Visit Provider Nurse Practitioner Family
DX: E78.00 Pure hypercholesterolemia, unspecified (principal)
CPT/HCPCS: 36415; 80061; 80076

== ENCOUNTER → 2025-09-21 | Outpatient (CLI) | payer MEDICARE, BC, SELFPAY ==
[2025-09-21 17:48] LABS: Anion Gap 11 (5-15); BUN 17 mg/dL (4-19); BUN/Creat Ratio 26.2 RATIO (10-20); Calcium 9.7 mg/dL (7.6-11.0); Calcium,Total 9.7 mg/dL (7.6-11.0); Carbon Dioxide 24.6 mmol/L (21.0-32.0); Chloride 106 mmol/L (98-108); Glucose 109 mg/dL (70-99); Magnesium 2.2 mg/dL (1.5-2.2); Potassium 4.2 mmol/L (3.3-5.1)
== END | disposition home or self-care (01) ==
LOC: LAB 16:30
PROVIDERS: PCP Nurse Practitioner Family; Referring Provider Internal Medicine Cardiovascular Disease; Visit Provider Internal Medicine Cardiovascular Disease
DX: R00.2 Palpitations (principal)
CPT/HCPCS: 36415; 80048; 82310; 83735

== ENCOUNTER → 2025-11-15 | Outpatient (CLI) | payer MEDICARE, BC, SELFPAY ==
[2025-11-15 10:12] LABS: Hematocrit 37.7 % (37-47); Hemoglobin 12.6 g/dL (12.0-15.0); Mean Corp Hgb Conc 33.4 g/dL (32-36); Mean Corpuscular Volume 95.9 fL (81-99); Mean Platelet Vol. 9.9 fl (6.2-12.0); POSITIVE DIFFERENTIAL YES; POSITIVE MORPHOLOGY YES; Platelet Count 202 K/mm3 (150-450); RBC Distribution Width CV 12.6 % (11.6-14.6); RBC Distribution Width SD 44.6 fl (35.1-43.9); Red Blood Count 3.93 M/mm3 (4.2-5.4); White Blood Count 16.6 K/mm3 (4.4-11.0)
[2025-11-15 10:55] LABS: AST(SGOT) 21 U/L (<=31); Alanine Aminotransfer ALT/SGPT 19 U/L (<=34); Albumin, Serum 4.4 g/dL (3.4-4.8); Alkaline Phosphatase 65 U/L (35-104); Anion Gap 8 (5-15); BUN 11 mg/dL (4-19); BUN/Creat Ratio 16.4 RATIO (10-20); Calcium,Total 9.6 mg/dL (7.6-11.0); Carbon Dioxide 28.5 mmol/L (21.0-32.0); Chloride 106 mmol/L (98-108); Globulin 1.8 g/dL (2.2-4.2); Glucose 99 mg/dL (70-99); Potassium 4.2 mmol/L (3.3-5.1); Vitamin D,25 Hydroxy 72.4 ng/mL (30-100)
[2025-11-15 11:05] LABS: Differential Indicated MANUAL DIFF
[2025-11-15 11:13] LABS: Neutrophil-Segmented 25 % (47-70)
[2025-11-15 11:16] LABS: Red Cell Morphology NORM C+C NORMAL (NORM C&C)
== END | disposition home or self-care (01) ==
LOC: LAB 08:45
PROVIDERS: PCP Nurse Practitioner Family; Referring Provider Nurse Practitioner Family; Visit Provider Nurse Practitioner Family
DX: E55.9 Vitamin D deficiency, unspecified (principal); I48.91 Unspecified atrial fibrillation; E78.5 Hyperlipidemia, unspecified; I97.89 Other postprocedural complications and disorders of the circulatory system, not elsewhere classified
CPT/HCPCS: 36415; 80053; 82306; 84443; 85025